=== PATIENT | female | born 1970 | race Caucasian/White ===

== ENCOUNTER → 2018-05-06 10:14 | Outpatient (CLI) | payer BC, SELFPAY | PROVIDERS: Family Provider Family Medicine; PCP Family Medicine; Visit Provider Family Medicine | DX: E03.9 Hypothyroidism, unspecified (principal); E88.81 Metabolic syndrome and other insulin resistance; I10 Essential (primary) hypertension | CPT/HCPCS: 36415 ==

== ENCOUNTER → 2018-06-13 12:27 | Outpatient (CLI) | payer BC, SELFPAY ==
--- NOTE | 2018-06-13 12:32 | BI_ITS ---
MAMMOGRAPHY - BILATERAL SCREENING REASON FOR EXAM: Female, 48 years old. Routine annual screening examination. PERTINENT HISTORY: Aunt with breast cancer. Remote right stereotactic breast biopsy. TECHNIQUE: Digital bilateral breast alina (3D mammographic acquisition) in the CC and MLO projections. 2-D mediolateral oblique (MLO) and craniocaudad (CC) views of both breasts were obtained. CAD: Full Field Digital Mammography with Computer Added Detection was performed. COMPARISON: Comparison is made with prior study dated June 16, 2017 and June 04, 2016. FINDINGS: Breast Composition: The breasts are heterogeneously dense, which may obscure small masses. There are no dominant masses or suspicious calcifications. Stable appearance of the scattered calcifications more prominent in the deep mid medial portion of the right breast. Stable appearance of the bilateral axillary lymph nodes. No other significant abnormalities are identified. There has been no significant change since the prior study. BI/SCREENING MAMM (CAD), BILAT IMPRESSION: Stable bilateral screening mammogram. Yearly follow-up mammogram recommended. (A) ASSESSMENT CATEGORY: BIRADS Category 2: Benign. A letter regarding these results will be sent to the patient by the facility within 30 days. Approximately 10% of breast cancers are not detected by mammography. A normal mammogram should not delay biopsy of a clinically suspicious abnormality. [id number] Electronically Signed: Dony Herrera MD at 8:20 EDT Tel [phone], Service support ,
== END ==
PROVIDERS: Family Provider Family Medicine; PCP Family Medicine
DX: Z12.31 Encounter for screening mammogram for malignant neoplasm of breast (principal)
CPT/HCPCS: 77063; 77067

== ENCOUNTER 2018-09-02 06:53 | Day surgery (SDC) | payer BC, SELFPAY ==
[2018-09-02] VITALS (7 sets, daily range): BP systolic 118–141; BP diastolic 76–105; PULSE 62–84; RESP 14–18; TEMP 36.2–36.8; O2SAT 97–100; BMI 33.7
[2018-09-02 07:24] LABS: Internal QC Validated? YES +Cl - CLEAR BKGD
[2018-09-02 07:25] LABS: Pregnancy, Urine Negative Negative
--- NOTE | 2018-09-02 08:25 | HP.PCM_ITS ---
History of Present Illness Date of Admission: 09/02/18 The patient is a 48 year old F who presents for screening colonoscopy. The patient has never had a colonoscopy in the past. She has no family history of colon cancer. She denies any abdominal pain, blood in the stool, inadvertent weight loss. Past Medical/Surgical History - Planned Operation Planned Operative Procedure/s: COLONOSCOPY Date of Operative Procedure: 09/02/17 Permit Signed: Yes S.O.S: No Is This Patient Having a Total Joint: No - Previous Hospitalizations/Surgeries HX Hospitalizations: No HX of Surgeries: TONSILS CHILD. 1987 ANKLE SURGERY/ PIN INSERTION/ REMOVAL 1988. 1997 BREAST LUMPECTOMY. GALLBLADDER. BUNIONECTOMY 2005. 2012 KNEE ARTHROSCOPY/MENISCUIS. 2004/TWINS. L WRIST GANGLION CYST Any Problems With Anesthesia: No You/Your Family Experience Fever (Hyperthermia) With Anes: No Cholinesterase deficiency: No - Cardiovascular Hx Chest Pain within Last 2 months: No Hx of Irregular Heartbeat and/or Afib: No Hx Heart Attack: No Hx Congestive Heart Failure: No Hx Rheumatic Fever: No Hx Hypertension: Yes - ON MED, CONTROLLED Hx Internal Defibrillator: No Hx Pacemaker: No Hx Cardiac Catheterization: No Hx Cardiac Surgery/Stents/Etc.: No Hx Stress Test: Yes - 2014 [facility], SEE NOTES HX Edema: No Hx Pain in Legs when Walking/Leg Cramps: No - Respiratory Chronic Cough: No HX of Shortness of Breath: No Hoarseness: No Hx Chronic Obstructive Pulmonary Disease (COPD): No Hx Asthma: Yes - UNDX'D PER PT. SHE FEELS SHE HAS Hx Emphysema: No Hx Sleep Apnea: No Hx Oxygen Use at Home: No Hx Respiratory Tract Infection/Cold (presently): No Do You Snore Loudly (louder than talking or can be heard): No Do You Often Feel Tired/ Fatigued/ Sleepy Dring Daytime?: No Has Anyone Observed You Stop Breathing During Sleep?: No Result (for STOP score): Negative Hx Smoking: No Smoking Status: Never smoker - Gastrointestinal Hx Gastroesophageal Reflux: No Hx Gastrointestinal Disorders: No Hx Gastrointestinal Bleed: No Hx Ulcer: No Hx Hiatal Hernia: No Difficulty Chewing/Swallowing: No Recent Onset of Swallowing Problems: No Special diet followed at home: No Hx Unplanned Weight Loss of 20#: No HX Unplanned Weight Gain of 20#: No - Neurological Hx Seizures: No HX Syncope/Blackout Spells/Unconsciousness: No Hx CVA/Stroke: No Hx Transient Ischemic Attacks (TIA): No Hx Multiple Sclerosis: No Hx Parkinson's Disease: No Hx Head/Neck Injury: Yes - BROKEN NECK 2009 C-2 HANGMANS BREAK Hx Headaches: No Hx Back Injury/Pain: No Recent Onset of Speech Difficulty: No Restless Legs: No Does patient have nerve stimulator: No - Blood Disorder Hx Leukemia: No Bleeding Tendencies: No Hx Deep Vein Thrombosis: No Hx High Cholesterol: Yes - OUT OF MED CURRENTLY, TAKES QOD Blood Transmitted Disease: No Hx Hepatitis: No Hx Cirrhosis: No Hx Anemia: No Hx Blood Disorders: No - Reproduction : No Is Patient Lactating: No Hx Hysterectomy: No Hx Tubal Ligation: No Are You Post Menopause: No Pt Instructed Not To Have Any Sex From Now Until Surgery: No - Genitourinary Hx Renal Disease: No - Musculoskeletal Hx Arthritis: Yes Hx Rheumatoid Arthritis: No Hx Gout: No Recent Onset of an Orthopedic Problem: No - Endocrine Hx Diabetes: No - METFORMIN FOR POLYCYSTIC OVARY Thyroid Disease: Yes - ON MED Hx Steroid Therapy: No - Psycho/Social Hx Substance Use: No Hx Alcohol Use: No Hx Anxiety: No Hx Depression: Yes Mental Illness: No Hx Dementia: No - Miscellaneous Hx Cancer: No Recent Exposure to Contagious Disease: No Active MRSA: No Hx of C-Diff: No Any Loose Teeth: No Allergies adhesive tape Allergy (Verified 09/02/18 07:10) Rash - Discharge Is Pt Admitted From a Longterm, or a [facility]: No Who Could Help: After D/C, Where Do you Plan to Go: Return Home - Physical Exam General: Alert, Oriented x3, Cooperative Lungs: Normal air movement Cardiovascular: Regular rate, Regular Rhythm Abdomen: Soft, Non Tender, Non-Distended Vital Signs Temp Pulse Resp BP Pulse Ox 98.2 F 84 14 141/86 H 98 09/02/18 07:13 09/02/18 07:13 09/02/18 07:13 09/02/18 07:13 09/02/18 07:13 Oxygen Delivery Method Room Air Weight: 196 lb 3.382 oz Body Mass Index (BMI) 33.7 Laboratory Tests Past 24 Hrs 09/02/18 07:06 Urine Test Negative Assessment/Plan 48-year-old female for screening colonoscopy 1. I explained endoscopy in detail to the patient. I explained the risks including but not limited to stroke or heart attack with anesthesia, perforation of the GI tract, bleeding, infection. I explained that any of these could necessitate further emergency surgery. The patient understands and all questions were answered sufficiently. The patient wishes to proceed with procedure. Sivakumar Richard MD Pager: [facility] [address] [place] [address] [address] [place] [address] Office: Surgery Risks - Colonoscopy Risks Include but are not Limited To: Risks include but are not limited to: Bleeding, perforation requiring further surgery, inability to complete colonoscopy requiring barium enema.
--- NOTE | 2018-09-02 08:29 | OP.ENDO_ITS ---
Patient Name: Radha Mayer Procedure Date: 09/02/2018 7:18 AM Date of : 1970 Age: 48 Procedure: Colonoscopy Indications: Screening for colorectal malignant neoplasm Providers: Sivakumar Richard MD Medicines: Monitored Anesthesia Care Patient Profile: This is a 48 year old female. Refer to note in patient chart for documentation of history and physical. Last Colonoscopy: none. The patient's first colonoscopy is today. Complications: No immediate complications. Procedure: Pre-Anesthesia Assessment: - Prior to the procedure, a History and Physical was performed, and patient medications and allergies were reviewed. The patient's tolerance of previous anesthesia was also reviewed. The risks and benefits of the procedure and the sedation options and risks were discussed with the patient. All questions were answered, and informed consent was obtained. Prior Anticoagulants: The patient has taken no previous anticoagulant or antiplatelet agents. After reviewing the risks and benefits, the patient was deemed in satisfactory condition to undergo the procedure. After I obtained informed consent, the scope was passed under direct vision. Throughout the procedure, the patient's blood pressure, pulse, and oxygen saturations were monitored continuously. The Colonoscope was introduced through the anus and advanced to the cecum, identified by appendiceal orifice and ileocecal valve. The colonoscopy was performed without difficulty. The patient tolerated the procedure well. The quality of the bowel preparation was good. Scope In: 8:03:56 AM Scope Withdrawal Time 0 hours 6 minutes 52 seconds Scope Out: 8:19:30 AM Total Procedure Duration Time 0 hours 15 minutes 34 seconds Findings: The entire examined colon appeared normal on direct and retroflexion views. Impression: - The entire examined colon is normal on direct and retroflexion views. - No specimens collected. Recommendation: - Discharge patient to home. - Resume previous diet. - Continue present medications. - Repeat colonoscopy in 10 years for screening purposes. Procedure Code(s): --- Professional --- 55460, PT, Colonoscopy, flexible; diagnostic, including collection of specimen(s) by brushing or washing, when performed (separate procedure) Diagnosis Code(s): --- Professional --- Z12.11, Encounter for screening for malignant neoplasm of colon CPT copyright 2017 [employer]. All rights reserved. The codes documented in this report are preliminary and upon assistant education director review may be revised to meet current compliance requirements. Sivakumar Richard MD 09/02/2018 8:29:19 AM This report has been signed electronically. Number of Addenda: 0 Note Initiated On: 09/02/2018 7:18 AM
== END 2018-09-02 08:54 | disposition home or self-care (01) ==
LOC: EN 06:54 → AC 06:55
PROVIDERS: Anesthesiology; Family Provider Family Medicine; PCP Family Medicine; Referring Provider Surgery; Visit Provider Surgery
PROC: 0DJD8ZZ Inspection of Lower Intestinal Tract, Via Natural or Artificial Opening Endoscopic (ICD-10-PCS; CPT 45378; principal; 2018-09-02 07:55)
DX: Z12.11 Encounter for screening for malignant neoplasm of colon (principal); I10 Essential (primary) hypertension; E78.00 Pure hypercholesterolemia, unspecified
CPT/HCPCS: 45378; 81025; J7120

== ENCOUNTER → 2018-10-11 09:49 | Outpatient (CLI) | payer BC, SELFPAY ==
[2018-09-02 07:13] VITALS: BMI 33.7
== END ==
PROVIDERS: Family Provider Family Medicine; PCP Family Medicine; Visit Provider Family Medicine
DX: E03.9 Hypothyroidism, unspecified (principal); E88.81 Metabolic syndrome and other insulin resistance; I10 Essential (primary) hypertension
CPT/HCPCS: 36415

== ENCOUNTER → 2019-06-15 09:04 | Outpatient (CLI) | payer BC, SELFPAY ==
[2018-09-02 07:13] VITALS: BMI 33.7
== END ==
PROVIDERS: Family Provider Family Medicine; PCP Family Medicine; Referring Provider Family Medicine; Visit Provider Family Medicine
DX: E03.9 Hypothyroidism, unspecified (principal)
CPT/HCPCS: 36415

== ENCOUNTER → 2019-06-19 14:28 | Outpatient (CLI) | payer BC, SELFPAY ==
[2018-09-02 07:13] VITALS: BMI 33.7
--- NOTE | 2019-06-19 14:32 | BI_ITS ---
MAMMOGRAPHY - BILATERAL SCREENING REASON FOR EXAM: Female, 49 years old. Routine annual screening examination. PERTINENT HISTORY: Aunt with breast cancer. TECHNIQUE: Digital bilateral breast kana (3D mammographic acquisition) in the CC and MLO projections. 2-D mediolateral oblique (MLO) and craniocaudad (CC) views of both breasts were obtained. CAD: Full Field Digital Mammography with Computer Added Detection was performed. COMPARISON: Comparison is made with prior study June 13, 2018 and June 16, 2017 FINDINGS: Breast Composition: The breasts are heterogeneously dense, which may obscure small masses. There are no dominant masses or suspicious calcifications. Stable benign-appearing bilateral axillary lymph nodes. No other significant abnormalities are identified. There has been no significant change since the prior study. BI/SCREEN MAMM (CAD) W/KANA BILAT IMPRESSION: Stable bilateral screening mammogram. Yearly follow-up mammogram recommended. (A) ASSESSMENT CATEGORY: BIRADS Category 2: Benign. A letter regarding these results will be sent to the patient by the facility within 30 days. Approximately 10% of breast cancers are not detected by mammography. A normal mammogram should not delay biopsy of a clinically suspicious abnormality. [id number] Electronically Signed: Dony Herrera, at 8:50 EDT , Service support ,
== END ==
PROVIDERS: Family Provider Family Medicine; PCP Family Medicine; Referring Provider Obstetrics & Gynecology Gynecology; Visit Provider Obstetrics & Gynecology Gynecology
DX: Z12.31 Encounter for screening mammogram for malignant neoplasm of breast (principal); Z80.3 Family history of malignant neoplasm of breast
CPT/HCPCS: 77063; 77067

== ENCOUNTER → 2020-05-23 09:30 | Outpatient (CLI) | payer BC, SELFPAY ==
[2018-09-02 07:13] VITALS: BMI 33.7
== END ==
PROVIDERS: PCP Family Medicine; Referring Provider Family Medicine; Visit Provider Family Medicine
DX: E03.9 Hypothyroidism, unspecified (principal)
CPT/HCPCS: 36415

== ENCOUNTER → 2020-06-13 10:27 | Outpatient (CLI) | payer BC, SELFPAY ==
[2018-09-02 07:13] VITALS: BMI 33.7
[2020-06-13 12:27] LABS: Anion Gap 8 (5-15); BUN 21 mg/dL (7-18); Chloride 104 mmol/L (98-107); Creatinine, Serum 0.96 mg/dL (0.55-1.02); EST Glomerular Filtration Rate 65 mL/min (>60); Est Glom Filt Rate - Afr Amer 79 mL/min (>60); Glucose 82 mg/dL (74-106); Potassium 4.2 mmol/L (3.5-5.1); Sodium Level 136 mmol/L (136-145)
== END ==
PROVIDERS: PCP Family Medicine; Referring Provider Family Medicine; Visit Provider Family Medicine
DX: E87.6 Hypokalemia (principal)
CPT/HCPCS: 36415; 80048

== ENCOUNTER → 2020-06-19 09:39 | Outpatient (CLI) | payer BC, SELFPAY ==
[2018-09-02 07:13] VITALS: BMI 33.7
--- NOTE | 2020-06-19 09:48 | STEWCON_ITS ---
Reason For Study: Fatigue, HTN Stress Results Protocol: Kenyon Protocol WITH DEFINITY Maximum Predicted HR: 168 bpm Target HR: 143 bpm % Maximum Predicted HR: 96 % DurationHeart Rate Stage (mm:ss) (bpm) BP Comment Baseline 85 122/90No Chest Pain; 3 ML Diluted Definity Kenyon Protocol Stage I 3:00 116 134/90No Chest Pain Kenyon Protocol Stage II 3:00 133 164/88No Chest Pain; Mild Dyspnea Kenyon Protocol Stage III 3:00 162 174/82No Chest Pain; Moderate Dyspnea Recovery 85 118/82No Chest Pain; No Dyspnea Stress Duration: 9:00 mm:ss Maximum Stress HR: 162 bpm METS: 10 Baseline Echocardiogram Findings The estimated ejection fraction is 60 %. Post stress EF is 75%. Stress Echo Wall motion Data Resting WM Intermediate WM Stress WM Resting Wall Motion Wall Motion Stress No regional wall motion No regional wall motion abnormalities noted. abnormalities noted. EKG Data The baseline ECG demonstrates normal sinus rhythm with at rate of _ beats per minute. No significant ST T changes. Symptoms with Stress The patient experinced no chest pain . Interpretation Summary The estimated ejection fraction is 60 %. Stress Echo is negative for stress induced CP or EKG or Echocardiographic changes of ischemia. Functional capacity is normal for age. Ordering Physician: Mat Geiger Referring Physician: Antony Camejo Performed By: Tapan Obando RCS
== END ==
PROVIDERS: PCP Family Medicine; Referring Provider Family Medicine; Visit Provider Family Medicine
DX: I10 Essential (primary) hypertension (principal)
CPT/HCPCS: 93017; 93350; Q9957; A4216; C8928

== ENCOUNTER → 2020-06-27 10:40 | Outpatient (CLI) | payer BC, SELFPAY ==
[2018-09-02 07:13] VITALS: BMI 33.7
--- NOTE | 2020-06-27 10:42 | BI_ITS ---
MAMMOGRAPHY - BILATERAL SCREENING REASON FOR EXAM: Female, 50 years old. Routine annual screening examination. PERTINENT HISTORY: Aunt with breast cancer. Remote right excisional breast biopsy and right stereotactic breast biopsy. TECHNIQUE: Digital bilateral breast kana (3D mammographic acquisition) in the CC and MLO projections. 2-D mediolateral oblique (MLO) and craniocaudad (CC) views of both breasts were obtained. CAD: Full Field Digital Mammography with Computer Added Detection was performed. COMPARISON: Comparison is made with prior study dated 06/19/2019 and 06/13/2018. FINDINGS: Breast Composition: The breasts are heterogeneously dense, which may obscure small masses. There are no dominant masses or suspicious calcifications. Stable benign appearing bilateral axillary lymph nodes. No other significant abnormalities are identified. There has been no significant change since the prior study. BI/SCREEN MAMM (CAD) W/KANA BILAT IMPRESSION: Stable bilateral screening mammogram. Yearly follow-up mammogram recommended. (A) ASSESSMENT CATEGORY: BIRADS Category 2: Benign. A letter regarding these results will be sent to the patient by the facility within 30 days. Approximately 10% of breast cancers are not detected by mammography. A normal mammogram should not delay biopsy of a clinically suspicious abnormality. [id number] Electronically Signed: Dony Herrera, at 11:30 EDT , Service support ,
== END ==
PROVIDERS: PCP Family Medicine; Referring Provider Obstetrics & Gynecology Gynecology; Visit Provider Obstetrics & Gynecology Gynecology
DX: Z12.31 Encounter for screening mammogram for malignant neoplasm of breast (principal); Z80.3 Family history of malignant neoplasm of breast
CPT/HCPCS: 77063; 77067

== ENCOUNTER → 2020-12-13 12:24 | Outpatient (CLI) | payer BC, SELFPAY ==
[2018-09-02 07:13] VITALS: BMI 33.7
--- NOTE | 2020-12-13 12:28 | RAD_ITS ---
STUDY: X-RAY - RIGHT HAND, ATTENTION FIFTH FINGER REASON FOR EXAM: Fifth finger pain after injury of the fifth finger 2 weeks ago. TECHNIQUE: 3 view(s) of the finger were obtained. COMPARISON: None. FINDINGS: Normal metacarpal head. Normal metacarpophalangeal joint. Normal proximal phalanx. Normal middle phalanx. Normal distal phalanx. Normal proximal interphalangeal joint. Normal distal interphalangeal joint. There is soft tissue swelling at the level the proximal interphalangeal joint. RAD/Finger(s) Min 2 Views IMPRESSION: Soft tissue swelling. No demonstrated fracture. Electronically Signed: Shahid Moore MD at 15:01 EDT Tel , Service support ,
== END ==
PROVIDERS: PCP Family Medicine; Referring Provider Family Medicine; Visit Provider Family Medicine
DX: S69.90XA Unspecified injury of unspecified wrist, hand and finger(s), initial encounter (principal)
CPT/HCPCS: 73140

== ENCOUNTER → 2021-05-12 08:06 | Outpatient (CLI) | payer BC, SELFPAY ==
[2021-05-12 09:26] LABS: Hematocrit 37.7 % (37-47); Hemoglobin 12.1 g/dL (12.0-15.0); Mean Corp Hgb Conc 32.1 g/dL (32-36); Mean Corpuscular Hgb 28.4 pg (27.0-32.0); Mean Corpuscular Volume 88.5 fL (81-99); Mean Platelet Vol. 10.8 fl (6.2-12.0); Platelet Count 268 K/mm3 (150-450); RBC Distribution Width CV 14.1 % (11.6-14.6); RBC Distribution Width SD 45.5 fl (35.1-43.9); Red Blood Count 4.26 M/mm3 (4.2-5.4); White Blood Count 10.3 K/mm3 (4.4-11.0)
[2021-05-12 09:46] LABS: Microalbumin,Random Urine 7.2 mg/L (NO RANGE EST.); Microalbumin:Creatinine Ratio 8.5 mg/g CRE (<30 mg/g CRE)
[2021-05-12 10:15] LABS: ALB/GLOB Ratio 1.1 RATIO (0.9-2.4); AST(SGOT) 18 U/L (15-37); Alanine Aminotransfer ALT/SGPT 33 U/L (13-56); Albumin, Serum 3.7 g/dL (3.2-5.0); Alkaline Phosphatase 46 U/L (45-117); Anion Gap 8 (5-15); BUN 15 mg/dL (7-18); BUN/Creat Ratio 18.3 RATIO (10-20); Calcium,Total 8.9 mg/dL (8.5-10.1); Chloride 103 mmol/L (98-107); Cholesterol 139 mg/dL (200); Creatinine, Serum 0.82 mg/dL (0.55-1.02); EST Glomerular Filtration Rate 78 mL/min (>60); Est Glom Filt Rate - Afr Amer 94 mL/min (>60); Globulin 3.5 g/dL (2.2-4.2); Glucose 92 mg/dL (74-106); High Density Lipoprotein 50 mg/dL; Protein, Total 7.2 g/dL (6.4-8.2); Sodium Level 136 mmol/L (136-145); T4 Free Direct 1.27 ng/dL (0.76-1.46); Thyroid Stim Hormone (TSH) 1.83 uIU/mL (0.358-3.74); Triglycerides 72 mg/dL; Very Low Density Lipoprotein 14 mg/dL (5-40)
== END ==
PROVIDERS: PCP Family Medicine; Referring Provider Family Medicine; Visit Provider Family Medicine
DX: E03.9 Hypothyroidism, unspecified (principal); E88.81 Metabolic syndrome and other insulin resistance; I10 Essential (primary) hypertension
CPT/HCPCS: 36415; 80053; 80061; 82043; 82570; 84439; 84443; 85027

== ENCOUNTER → 2021-06-25 13:08 | Outpatient (CLI) | payer BC, SELFPAY ==
--- NOTE | 2021-06-25 13:12 | BI_ITS ---
MAMMOGRAPHY - BILATERAL SCREENING REASON FOR EXAM: Female, 51 years old. Routine annual screening examination. PERTINENT HISTORY: Aunt with breast cancer. Remote right stereotactic breast biopsy and right excisional breast biopsy. TECHNIQUE: Digital bilateral breast kana (3D mammographic acquisition) in the CC and MLO projections. 2-D mediolateral oblique (MLO) and craniocaudad (CC) views of both breasts were obtained. CAD: Full Field Digital Mammography with Computer Added Detection was performed. COMPARISON: Comparison is made with prior study 06/27/2020 and 06/19/2019. FINDINGS: Breast Composition: The breasts are heterogeneously dense, which may obscure small masses. There are no dominant masses or suspicious calcifications. No other significant abnormalities are identified. There has been no significant change since the prior study. BI/SCRN MAMM (CAD)W/KANA BILAT IMPRESSION: Stable bilateral screening mammogram. Yearly follow-up mammogram recommended. (A) ASSESSMENT CATEGORY: BIRADS Category 1: Negative. A letter regarding these results will be sent to the patient by the facility within 30 days. Approximately 10% of breast cancers are not detected by mammography. A normal mammogram should not delay biopsy of a clinically suspicious abnormality. [id number] Electronically Signed: Dony Herrera MD at 15:19 EDT , Service support ,
== END ==
PROVIDERS: PCP Family Medicine; Referring Provider Obstetrics & Gynecology Gynecology; Visit Provider Obstetrics & Gynecology Gynecology
DX: Z12.31 Encounter for screening mammogram for malignant neoplasm of breast (principal); Z80.3 Family history of malignant neoplasm of breast
CPT/HCPCS: 77063; 77067

== ENCOUNTER → 2022-05-15 | Outpatient (CLI) | payer BC, SELFPAY | END | disposition home or self-care (01) | LOC: MFPLAB 10:17 | PROVIDERS: PCP Family Medicine; Referring Provider Family Medicine; Visit Provider Nurse Practitioner Family | DX: E03.9 Hypothyroidism, unspecified (principal); I10 Essential (primary) hypertension; E78.5 Hyperlipidemia, unspecified; Z13.1 Encounter for screening for diabetes mellitus | CPT/HCPCS: 36415 ==

== ENCOUNTER → 2022-06-26 | Outpatient (CLI) | payer BC, SELFPAY ==
--- NOTE | 2022-06-26 07:22 | BI_ITS ---
MAMMOGRAPHY - BILATERAL SCREENING REASON FOR EXAM: Female, 52 years old. Routine annual screening examination. PERTINENT HISTORY: Aunt with breast cancer. Remote right stereotactic and right excisional breast biopsies. TECHNIQUE: Digital bilateral breast alina (3D mammographic acquisition) in the CC and MLO projections. 2-D mediolateral oblique (MLO) and craniocaudad (CC) views of both breasts were obtained. CAD: Full Field Digital Mammography with Computer Added Detection was performed. COMPARISON: Comparison is made with prior examination 06/25/2021 and 06/27/2020. FINDINGS: Breast Composition: The breasts are heterogeneously dense, which may obscure small masses. There are no dominant masses or suspicious calcifications. No other significant abnormalities are identified. There has been no significant change since the prior study. BI/SCREENING MAMM (CAD), BILAT IMPRESSION: Stable bilateral screening mammogram. Yearly follow-up mammogram recommended. (A) ASSESSMENT CATEGORY: BIRADS Category 1: Negative. A letter regarding these results will be sent to the patient by the facility within 30 days. Approximately 10% of breast cancers are not detected by mammography. A normal mammogram should not delay biopsy of a clinically suspicious abnormality. [id number] Electronically Signed: Dony Herrera MD at 8:35 EDT ,
== END | disposition home or self-care (01) ==
LOC: OPBI 07:20
PROVIDERS: PCP Family Medicine; Referring Provider Family Medicine; Visit Provider Family Medicine
DX: Z12.31 Encounter for screening mammogram for malignant neoplasm of breast (principal); Z92.89 Personal history of other medical treatment; Z80.3 Family history of malignant neoplasm of breast
CPT/HCPCS: 77067

== ENCOUNTER → 2022-07-28 | Outpatient (CLI) | payer BC, SELFPAY ==
--- NOTE | 2022-07-28 15:05 | BD_ITS ---
STUDY: DUAL ENERGY X-RAY ABSORPTIOMETRY / DXA REASON FOR EXAM: Female, 52 years old. [id number] TECHNIQUE: Bone Mineral Density (BMD) measurements of lumbar spine and bilateral hips were obtained. COMPARISON: None. FINDINGS: Lumbar Spine (L1-L4): g/cm2 (1.073) / T-score (0.2) / Z-score (1.3) Findings are suggestive of normal bone density with a low fracture risk. Left Femur Total: g/cm2 (1.036) / T-score (0.8) / Z-score (1.4) Left Femoral Neck: g/cm2 (0.801) / T-score (-0.4) / Z-score (0.6) Right Femur Total: g/cm2 (1.034) / T-score (0.8) / Z-score (1.4) Right Femoral Neck: g/cm2 (0.804) / T-score (-0.4) / Z-score (0.7) BD/Dexa Bone Density Study IMPRESSION: The patient is considered normal as outlined below according to World [employer] Organization (WHO) criteria with a low fracture risk. Reference Information: The T-score is the number of standard deviations above or below the standard which is normal for young adults at their peak bone mineral density. The World Health Organization (WHO) interprets the T-scores as follows: Above -1 Normal bone density Between -1 and -2.5 Osteopenia Equal to / or below -2.5 Osteoporosis As a practical clinical guideline, osteopenia may be graded as follows: Mild -1 through -1.5 Moderate -1.6 through -2.0 Severe -2.1 through -2.4 The Z-score is the number of standard deviations above or below age-matched controls. A Z-score of less than -1.5 would be considered abnormal. References: 1. NIH Osteoporosis and Related Bone Diseases www osteo.org 2. International Society for Clinical Densitometry www iscd.org 3. National Osteoporosis Foundation www nof.org Electronically Signed: Dony Herrera MD at 10:23 EST ,
== END | disposition home or self-care (01) ==
LOC: OPBD 15:00
PROVIDERS: PCP Family Medicine; Visit Provider Obstetrics & Gynecology Gynecology
DX: Z13.820 Encounter for screening for osteoporosis (principal)
CPT/HCPCS: 77080

== ENCOUNTER → 2023-06-29 | Outpatient (CLI) | payer BC, SELFPAY ==
--- NOTE | 2023-06-29 14:45 | BI_ITS ---
MAMMOGRAPHY - BILATERAL SCREENING REASON FOR EXAM: Female, 53 years old. Routine annual screening examination. PERTINENT HISTORY: Aunt with breast cancer. Remote right stereotactic and right excisional breast biopsies. TECHNIQUE: Digital bilateral breast kana (3D mammographic acquisition) in the CC and MLO projections. 2-D mediolateral oblique (MLO) and craniocaudad (CC) views of both breasts were obtained. CAD: Full Field Digital Mammography with Computer Added Detection was performed. COMPARISON: Comparison is made with prior study dated June 26, 2022 and June 25, 2021. FINDINGS: Breast Composition: The breasts are heterogeneously dense, which may obscure small masses. There are no dominant masses or suspicious calcifications. Stable small benign-appearing bilateral axillary left nodes. No other significant abnormalities are identified. There has been no significant change since the prior study. BI/SCRN MAMM (CAD)W/KANA BILAT IMPRESSION: Stable bilateral screening mammogram. Yearly follow-up mammogram recommended. (A) ASSESSMENT CATEGORY: BIRADS Category 2: Benign. A letter regarding these results will be sent to the patient by the facility within 30 days. Approximately 10% of breast cancers are not detected by mammography. A normal mammogram should not delay biopsy of a clinically suspicious abnormality. [id number] Electronically Signed: Dony Herrera MD at 15:19 EDT ,
== END | disposition home or self-care (01) ==
LOC: OPBI 14:44
PROVIDERS: PCP Family Medicine; Referring Provider Obstetrics & Gynecology Gynecology; Visit Provider Obstetrics & Gynecology Gynecology
DX: Z12.31 Encounter for screening mammogram for malignant neoplasm of breast (principal); Z80.3 Family history of malignant neoplasm of breast
CPT/HCPCS: 77063; 77067

== ENCOUNTER → 2024-03-20 | Outpatient (CLI) | payer BC, SELFPAY ==
[2024-03-20 17:46] LABS: Absolute Lymphocyte Count 3.07 X10^3/uL (0.83-4.51); Absolute Neutrophil Count 4.3 X10^3/uL (2.0-7.7); Basophil# 0.08 X10^3/uL; Basophil% 0.9 % (0-1); Eosinophil# 0.64 X10^3/uL; Eosinophils% 7.2 % (0-5); Hematocrit 41.9 % (37-47); Hemoglobin 13.7 g/dL (12.0-15.0); Lymphocyte # 3.07 X10^3/ul (0.83-4.51); Lymphocyte % 34.4 % (19-41); Mean Corp Hgb Conc 32.7 g/dL (32-36); Mean Corpuscular Hgb 29.3 pg (27.0-32.0); Mean Corpuscular Volume 89.7 fL (81-99); Mean Platelet Vol. 11.1 fl (6.2-12.0); Monocyte# 0.83 X10^3/uL; Monocyte% 9.3 % (0-10); NRBC Flagged by Analyzer 0 % (0-5); Neutrophil # 4.28 X10^3/uL (2.7-7.7); Neutrophil % 47.9 % (47-70); Platelet Count 260 K/mm3 (150-450); RBC Distribution Width CV 13.1 % (11.6-14.6); RBC Distribution Width SD 42.9 fl (35.1-43.9); Red Blood Count 4.67 M/mm3 (4.2-5.4); White Blood Count 8.9 K/mm3 (4.4-11.0)
[2024-03-20 18:05] LABS: ALB/GLOB Ratio 1.2 RATIO (0.9-2.4); AST(SGOT) 42 U/L (15-37); Alanine Aminotransfer ALT/SGPT 50 U/L (13-56); Albumin, Serum 4.3 g/dL (3.2-5.0); Alkaline Phosphatase 41 U/L (45-117); Anion Gap 8 (5-15); BUN 19 mg/dL (7-18); BUN/Creat Ratio 20.9 RATIO (10-20); Calcium,Total 9.5 mg/dL (8.5-10.1); Chloride 101 mmol/L (98-107); Cholesterol 144 mg/dL (200); Creatinine, Serum 0.91 mg/dL (0.55-1.02); EST Glomerular Filtration Rate 68 mL/min (>60); Est Glom Filt Rate - Afr Amer 82 mL/min (>60); Globulin 3.6 g/dL (2.2-4.2); Glucose 88 mg/dL (74-106); High Density Lipoprotein 52 mg/dL; Potassium 4.4 mmol/L (3.5-5.1); Protein, Total 7.9 g/dL (6.4-8.2); Sodium Level 135 mmol/L (136-145); Thyroid Stim Hormone (TSH) 1.53 uIU/mL (0.358-3.74)
[2024-03-20 18:16] LABS: Microalbumin:Creatinine Ratio 13.9 mg/g CRE (<30 mg/g CRE)
== END | disposition home or self-care (01) ==
LOC: MFPLAB 15:04
PROVIDERS: PCP Family Medicine; Visit Provider Family Medicine
DX: K76.0 Fatty (change of) liver, not elsewhere classified (principal); I10 Essential (primary) hypertension; E03.9 Hypothyroidism, unspecified; E78.5 Hyperlipidemia, unspecified
CPT/HCPCS: 36415; 80053; 82043; 82465; 82570; 83718; 84443; 85025

== ENCOUNTER 2024-03-23 04:02 | Emergency (ER) | payer BC, SELFPAY ==
[2024-03-23 04:02] VITALS: BP 144/97; PULSE 77; RESP 16; TEMP 36.1; O2SAT 97; BMI 34.7
--- NOTE | 2024-03-23 04:13 | CT_ITS ---
EXAM: CT ABDOMEN AND PELVIS WITHOUT INTRAVENOUS CONTRAST CLINICAL INDICATION: right flank pain TECHNIQUE: Helically acquired images were obtained of the abdomen and pelvis without intravenous contrast. This CT exam was performed using one or more of the following dose reduction techniques: automated exposure control, adjustment of the mA and/or kV according to patient size, and/or use of iterative reconstruction technique. RADIATION DOSE: CTDIvol = 15.72 mGy, DLP = 856.19 mGy-cm COMPARISON: No relevant prior studies available. FINDINGS: LOWER THORAX: Unremarkable. Lung bases are clear. No cardiomegaly. No significant pericardial effusion. ABDOMEN: LIVER: Hepatomegaly with fatty infiltration. GALLBLADDER AND BILE DUCTS: Cholecystectomy. No intra- or extrahepatic biliary ductal dilation. PANCREAS: Unremarkable. No focal cystic mass. SPLEEN: Unremarkable. Normal size without focal cystic or solid mass. ADRENALS: Unremarkable. No nodules. KIDNEYS AND URETERS: No ureteral stone or renal obstruction. Normal renal size and position. 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 No stomach or bowel distention. PELVIS: APPENDIX: The appendix is normal. BLADDER: Unremarkable. REPRODUCTIVE: Unremarkable as visualized. No mass. ABDOMEN and PELVIS: INTRAPERITONEAL SPACE: Unremarkable. No ascites or other fluid collection. No free air. BONES/JOINTS: Degenerative changes of the spine. No suspicious lytic or blastic abnormality. SOFT TISSUES: Unremarkable. No discrete abdominal or pelvic wall hernia. VASCULATURE: Unremarkable. Abdominal aorta is non-dilated. LYMPH NODES: Unremarkable. No enlarged lymph nodes. CT/Abdomen/Pelvis without Cont IMPRESSION: 1. No acute abnormalities identified in the abdomen/pelvis. 2. No ureteral stone or renal obstruction. Electronically Signed: Luis Felipe Zapata MD at 4:54 EDT ,
--- NOTE | 2024-03-23 04:14 | EX.ED.DYSGE1 ---
HPI History of Present Illness Chief Complaint: Flank Pain Informant: patient Onset/Context/Timing Onset: Today Narrative Narrative: Patient presents secondary to right flank pain that started about an hour ago when she rolled over in bed. She felt well when she went to bed last night. She denies urinary symptoms, nausea, or vomiting. No history of kidney stones. She has had a prior cholecystectomy. [facility] Medical History HTN (hypertension) PCOS (polycystic ovarian syndrome) Hypothyroid Home Medications ?Medication ?Instructions ?Recorded ?Last Taken ?Type levothyroxine 88 mcg tablet 88 mcg PO QHS 07/20/16 Unknown History metformin 500 mg 24 hr 2,000 mg PO QHS 07/20/16 Unknown History tablet,extended release (gastric retention) bupropion HCl 150 mg 24 hr tablet, 150 mg PO DAILY 08/29/18 Unknown History extended release (Wellbutrin XL) cholecalciferol (vitamin D3) 25 1,000 unit PO DAILY 08/29/18 Unknown History mcg (1,000 unit) tablet (Vitamin D3) losartan 25 mg tablet 25 mg PO DAILY 08/29/18 Unknown History magnesium 250 mg tablet 500 mg PO DAILY 08/29/18 Unknown History hydrocodone-acetaminophen 5-325mg 1 tab PO Q6H PRN PRN Pain 3 days 03/23/24 Unknown Rx 5mg-325mg #10 TABLETS naproxen 500 mg tablet (Naprosyn) 500 mg PO BID PRN pain #20 tabs 03/23/24 Unknown Rx ondansetron 4 mg disintegrating 4 mg PO Q8H PRN PRN Nausea #10 tabs 03/23/24 Unknown Rx tablet Allergy/AdvReac Type Severity Reaction Status Date / Time adhesive tape Allergy Rash Verified 03/23/24 04:08 Surgical History H/O lumpectomy History of delivery History of orthopedic surgery Hx of tonsillectomy Hx of cholecystectomy Social History Smoking Status: Never smoker ROS ROS ED Constitutional Constitutional ED: Denies chills or fever(s) Eyes Eyes: Denies discharge from eye(s) ENT ENT ED: Denies discharge from eye(s), rhinorrhea or sore throat Cardiovascular Cardiovascular: Denies chest pain or palpitations Respiratory/Chest Respiratory/Chest: Denies cough or dyspnea Gastrointestinal Gastrointestinal: Reports abdominal pain; Denies diarrhea, nausea or vomiting Genitourinary Genitourinary ED: Denies dysuria, hematuria or urinary frequency Musculoskeletal Musculoskeletal: Reports back pain; Denies extremity pain Integumentary Denies Abrasions or rash Neurologic Neurologic: Denies headache(s) or weakness Allergic/Immunologic Allergic/Immunologic ED: Denies lip swelling or urticaria EXAM Physical Exam Const Vital Signs: 03/23/24 04:02 Temperature 97 F L Temperature Source Temporal Pulse Rate 77 Respiratory Rate 16 Blood Pressure 144/97 H Blood Pressure Mean 112 Pulse Ox 97 Positive well nourished and well developed General Appearance ED: well developed HEENT Reports moist mucous membranes Eyes EOMs intact bilaterally Neck no lymphadenopathy Chest Wall inspection of chest normal and palpation of chest normal Resp normal respiratory effort and clear to auscultation bilaterally Cardio regular rate and regular rhythm GI non-tender Palpation: soft Back/Spine General Back: CVA tenderness right Extremity normal to inspection Neuro oriented x3 and no sensory deficits noted Motor Exam: strength 5/5 throughout Psych mental status grossly normal Skin no rashes or lesions noted MDM MDM MDM Narrative Medical decision making narrative: IV line established. Patient given Toradol and Zofran along with IV fluids. Labwork obtained to evaluate for leukocytosis, anemia, and electrolyte derangement. Urinalysis obtained to evaluate for infection/hematuria. CT flank obtained to evaluate for appendicitis, kidney stone, colitis. History & Record Review Discussion w/independent historian: Patient Lab Data Attestation: I reviewed the patient's lab results. Labs: Laboratory Results - last 24 hr 03/23/24 03/23/24 04:15 04:28 WBC 8.4 RBC 4.65 Hgb 13.6 Hct 41.0 MCV 88.2 MCH 29.2 MCHC 33.2 RDW Std Deviation 41.7 RDW Coeff of Malini 12.9 Plt Count 242 MPV 10.7 Immature Gran % (Auto) 0.400 Neut % (Auto) 49.9 Lymph % (Auto) 31.8 [place] % (Auto) 10.1 H Eos % (Auto) 7.1 H Baso % (Auto) 0.7 Absolute Neuts (auto) 4.2 Absolute Lymphs (auto) 2.67 Nucleated RBC % 0 Sodium 137 Potassium 3.7 Chloride 105 Carbon Dioxide 25.0 Anion Gap 7 BUN 17 Creatinine 0.99 Estim Creat Clear Calc 69.62 Est GFR (MDRD) Af Amer 75 Est GFR (MDRD) Non-Af 62 BUN/Creatinine Ratio 17.2 Glucose 124 H Calcium 9.3 Total Bilirubin 0.50 Direct Bilirubin 0.18 AST 31 ALT 47 Alkaline Phosphatase 47 Total Protein 7.3 Albumin 4.1 Globulin 3.2 Lipase 51 Urine Color Yellow Urine Clarity Clear Urine pH 6.0 Ur Specific [place] 1.015 Urine Protein Negative Urine Glucose (UA) Normal Urine Ketones Negative Urine Occult Blood Negative Urine Nitrite Negative Urine Bilirubin Negative Urine Urobilinogen Normal Ur Leukocyte Esterase 25 H Urine RBC 0 SEEN Urine WBC 0 SEEN Ur Squamous Epith Cells 5-10 SEEN Urine Bacteria 0 SEEN Urine Mucus 0 SEEN Radiography Diagnostic Testing: Clinical Impression(s) from Imaging Studies Abdomen/Pelvis CT 03/23/24 04:13 IMPRESSION: 1. No acute abnormalities identified in the abdomen/pelvis. 2. No ureteral stone or renal obstruction. Electronically Signed: Luis Felipe Zapata MD at 4:54 EDT , Treatment and Re-Evaluation :: CBC was normal white count 8.4 with a hemoglobin of 13.6. Differential unremarkable. Chemistry studies unremarkable with normal renal function. Glucose is 124. LFTs and lipase are normal. Urine has reveals epithelial cells but no evidence of infection or hematuria. CT flank reveals no acute abnormalities identified. On repeat evaluation patient still does have some pain, however did drive herself to the emergency room and does not want narcotics if we can avoid it. I will write her prescription for [place] along with some Zofran for nausea. Test results are discussed with her. She has pain consistent with a kidney stone, but nothing is seen. She may be having some ureteral spasm or even have a noncalcified stone. She was given strict return instructions and is comfortable with the plan. Discharge Plan Triage Chief Complaint: Flank Pain ED Provider: Pam Hernández Dx/Rx/DC Orders Clinical Impression: Flank pain Instructions: ED Flank Pain, Uncertain Cause Prescriptions: New hydrocodone-acetaminophen 5-325 mg tablet 1 tab PO Q6H PRN PRN (Reason: Pain) 3 Days Qty: 10 0RF naproxen [Naprosyn] 500 mg tablet 500 mg PO BID PRN (Reason: pain) Qty: 20 0RF ondansetron 4 mg tablet,disintegrating 4 mg PO Q8H PRN PRN (Reason: Nausea) Qty: 10 0RF No Action levothyroxine 88 MCG tablet 88 mcg PO QHS metformin 500 MG tablet,ER [email or web address].[email or web address] 24 hr 2,000 mg PO QHS Patient Comments: POLYCYSTIC OVARIAN DISEASE losartan 25 MG tablet 25 mg PO DAILY magnesium 250 MG tablet 500 mg PO DAILY bupropion HCl [Wellbutrin XL] 150 MG tablet extended release 24 hr 150 mg PO DAILY cholecalciferol (vitamin D3) [Vitamin D3] 1,000 UNIT tablet 1,000 unit PO DAILY Primary Care Provider: Mat Geiger Referrals: Mat Geiger MD [Primary Care Provider] - 1 Week Print Language: Spanish Disposition Disposition: Home, Self Care
[2024-03-23 04:22] LABS: Absolute Lymphocyte Count 2.67 X10^3/uL (0.83-4.51); Absolute Neutrophil Count 4.2 X10^3/uL (2.0-7.7); Basophil# 0.06 X10^3/uL; Basophil% 0.7 % (0-1); Eosinophils% 7.1 % (0-5); Hemoglobin 13.6 g/dL (12.0-15.0); Lymphocyte # 2.67 X10^3/ul (0.83-4.51); Lymphocyte % 31.8 % (19-41); Mean Corp Hgb Conc 33.2 g/dL (32-36); Mean Corpuscular Hgb 29.2 pg (27.0-32.0); Mean Corpuscular Volume 88.2 fL (81-99); Mean Platelet Vol. 10.7 fl (6.2-12.0); Monocyte# 0.85 X10^3/uL; Monocyte% 10.1 % (0-10); NRBC Flagged by Analyzer 0 % (0-5); Neutrophil # 4.19 X10^3/uL (2.7-7.7); Neutrophil % 49.9 % (47-70); Platelet Count 242 K/mm3 (150-450); RBC Distribution Width CV 12.9 % (11.6-14.6); RBC Distribution Width SD 41.7 fl (35.1-43.9); Red Blood Count 4.65 M/mm3 (4.2-5.4); White Blood Count 8.4 K/mm3 (4.4-11.0)
[2024-03-23] MEDS: Ketorolac 15 MG/ML Vial IV (04:24)
[2024-03-23] MEDS: Ondansetron 4 MG/2 ML Vial IV (04:24)
[2024-03-23 04:34] LABS: Bacteria 0 SEEN /hpf (None Seen); Mucous, Urine 0 SEEN /hpf (<or=2+); Red Blood Cells-Urine 0 SEEN /hpf (0-5); White Blood Cells 0 SEEN /hpf (0-5)
[2024-03-23 04:35] LABS: Color, Urine Yellow (Yellow); Glucose, Dipstick Normal (Normal); Ketone-Dipstick Negative (Negative); Leukocyte Esterase-Dipstick 25 /ul (Negative); Nitrite-Dipstick Negative (Negative); Occult Blood-Urine Negative /ul (Negative); Protein-Dipstick Negative (Negative); Specific Gravity, Urine 1.015 (1.002-1.030); Urine Bilirubin Dipstick Negative (Negative); Urine Clarity Clear (Clear); Urine Urobilinogen Normal (Normal)
[2024-03-23 04:40] LABS: AST(SGOT) 31 U/L (15-37); Alanine Aminotransfer ALT/SGPT 47 U/L (13-56); Albumin, Serum 4.1 g/dL (3.2-5.0); Alkaline Phosphatase 47 U/L (45-117); Anion Gap 7 (5-15); BUN 17 mg/dL (7-18); BUN/Creat Ratio 17.2 RATIO (10-20); Bilirubin, Direct 0.18 mg/dL (0.00-0.30); Calcium,Total 9.3 mg/dL (8.5-10.1); Chloride 105 mmol/L (98-107); Creatinine, Serum 0.99 mg/dL (0.55-1.02); EST Glomerular Filtration Rate 62 mL/min (>60); Est Glom Filt Rate - Afr Amer 75 mL/min (>60); Estimated Creatinine Clearance 69.62 ml/min; Globulin 3.2 g/dL (2.2-4.2); Glucose 124 mg/dL (74-106); Lipase 51 U/L (13-75); Potassium 3.7 mmol/L (3.5-5.1); Protein, Total 7.3 g/dL (6.4-8.2); Sodium Level 137 mmol/L (136-145)
[2024-03-23] MEDS: 0.9% Normal Saline (1000mL) 1,000 ML 150 ML IV (05:07)
[2024-03-23 05:32] LABS: Squamous Epithelial Cells - UA 5-10 SEEN /hpf (5-10)
[2024-03-23 06:32] VITALS: BP 117/68; PULSE 87; RESP 16; TEMP 36.6; O2SAT 99
== END 2024-03-23 06:33 | disposition home or self-care (01) ==
PROVIDERS: Emergency Provider Emergency Medicine; PCP Family Medicine; Visit Provider Emergency Medicine
DX: R10.9 Unspecified abdominal pain (principal); I10 Essential (primary) hypertension; E03.9 Hypothyroidism, unspecified; E28.2 Polycystic ovarian syndrome; Z90.49 Acquired absence of other specified parts of digestive tract
CPT/HCPCS: 74176; 80048; 80076; 81001; 83690; 85025; 96361; 96374; 96375; 99283; J7040; A4216; J2405

== ENCOUNTER → 2024-08-03 | Outpatient (CLI) | payer BC, SELFPAY ==
--- NOTE | 2024-08-03 15:37 | BI_ITS ---
MAMMOGRAPHY - BILATERAL SCREENING REASON FOR EXAM: Female, 54 years old. Routine annual screening examination. PERTINENT HISTORY: Aunt with breast cancer. Prior right stereotactic breast biopsy and right excisional breast biopsy. TECHNIQUE: Digital bilateral breast kana (3D mammographic acquisition) in the CC and MLO projections. 2-D mediolateral oblique (MLO) and craniocaudad (CC) views of both breasts were obtained. CAD: Full Field Digital Mammography with Computer Added Detection was performed. COMPARISON: Comparison is made with prior study dated June 29, 2023 and June 26, 2022. FINDINGS: Breast Composition: The breasts are heterogeneously dense, which may obscure small masses. There are no dominant masses or suspicious calcifications. No other significant abnormalities are identified. There has been no significant change since the prior study. BI/SCRN MAMM (CAD)W/KANA BILAT IMPRESSION: Stable bilateral screening mammogram. Yearly follow-up mammogram recommended. (A) ASSESSMENT CATEGORY: BIRADS Category 1: Negative. A letter regarding these results will be sent to the patient by the facility within 30 days. Approximately 10% of breast cancers are not detected by mammography. A normal mammogram should not delay biopsy of a clinically suspicious abnormality. [id number] Electronically Signed: Dony Herrera MD at 8:39 EST ,
--- NOTE | 2024-08-03 15:38 | BD_ITS ---
STUDY: DUAL ENERGY X-RAY ABSORPTIOMETRY / DXA REASON FOR EXAM: Female, 54 years old. [id number] TECHNIQUE: Bone Mineral Density (BMD) measurements of lumbar spine and bilateral hips were obtained. COMPARISON: Comparison is made with prior study dated July 28, 2022. FINDINGS: Lumbar Spine (L1-L4): g/cm2 (1.042) / T-score (-0.1) / Z-score (1.1) Findings are suggestive of normal bone density with a low fracture risk. Left Femur Total: g/cm2 (1.028) / T-score (0.7) / Z-score (1.5) Left Femoral Neck: g/cm2 (0.751) / T-score (-0.9) / Z-score (0.2) Right Femur Total: g/cm2 (1.014) / T-score (0.6) / Z-score (1.3) Right Femoral Neck: g/cm2 (0.803) / T-score (-0.4) / Z-score (0.7) The T-Scores on the most recent prior examination were: Lumbar Spine (L1-L4): There has been worsening of bone density since the previous examination. Left Femur Total: which represents a worsening of 0.8%. Right Femur Total: which represents a worsening of 1.9. BD/Dexa Bone Density Study IMPRESSION: The patient is considered normal as outlined below according to World [employer] Organization (WHO) criteria with a low fracture risk. There has been worsening of bone density since the previous examination. Reference Information: The T-score is the number of standard deviations above or below the standard which is normal for young adults at their peak bone mineral density. The World Health Organization (WHO) interprets the T-scores as follows: Above -1 Normal bone density Between -1 and -2.5 Osteopenia Equal to / or below -2.5 Osteoporosis As a practical clinical guideline, osteopenia may be graded as follows: Mild -1 through -1.5 Moderate -1.6 through -2.0 Severe -2.1 through -2.4 The Z-score is the number of standard deviations above or below age-matched controls. A Z-score of less than -1.5 would be considered abnormal. References: 1. NIH Osteoporosis and Related Bone Diseases www osteo.org 2. International Society for Clinical Densitometry www iscd.org 3. National Osteoporosis Foundation www nof.org Electronically Signed: Dony Herrera MD at 9:16 EST ,
== END | disposition home or self-care (01) ==
PROVIDERS: PCP Family Medicine; Referring Provider Obstetrics & Gynecology Gynecology; Visit Provider Obstetrics & Gynecology Gynecology
DX: Z12.31 Encounter for screening mammogram for malignant neoplasm of breast (principal); Z80.3 Family history of malignant neoplasm of breast; M81.0 Age-related osteoporosis without current pathological fracture
CPT/HCPCS: 77063; 77067; 77080

== ENCOUNTER → 2025-03-17 | Outpatient (CLI) | payer BC, SELFPAY ==
--- OUTSIDE RECORDS SUMMARY | 2025-03-17 07:24 | XMS RPT_ITS | CCD ---
Author Organization [facility] Care Team Providers Care Duralumin Mechanic Name Role Phone Jd PARKINSON, Beti Ellis Unavailable [phone] Aaron Geiger MD Primary Care Provider Dr. Aaron Geiger Primary Care Provider Dr. Aaron Geiger Referring Provider [phone] MAHOGANY Forde Attending Provider [phone] CHADWICK TO Attending Unavailabl e SUJATA JENNINGS Referring Unavailable GEIGER, AARON A Primary Care Unavailable SUJATA JENNINGS Referring Unavailable GEIGER, AARON A Primary Care Unavailable LEIGH KNAPP Attending Unavailable GEIGER, AARON A Referring Unavailable GEIGER, AARON A Primary Care Unavailable GEIGER, AARON A Primary Care Unavailable JUANJO, AARON A Primary Care Unavailable CHADWICK TO Referring Unavailabl e CHADWICK TO Referring Unavailabl e GEIGER, AARON A Primary Care Unavailable Beti Miles MD Unavailable [phone] Aaron Geiger MD Primary Care Provider Beti Miles Attending Unavailable Beti Miles Referring Unavailable Juanjo, Aaron Primary Care Unavailable Aaron Geiger Attending Unavailable Juanjo, Aaron Primary Care Unavailable Geiger, Aaron Primary Care Unavailable Pam Hernández Attending Unavailable Allergies Allergy Classification Reported Allergen(s) Allergy Type Date of Onset Reaction(s) Facility (4 sources) Adhesive Tape; Translations: [adhesive tape] Allergy to substance 9 [facility] Repository (11 sources) Adhesive agent; Translations: [ADHESIVE] Drug Allergy 9 Unknown, Breanna [facility] Work Phone: Medications Current Medications Medication Drug Class(es) Dates Sig (Normalized) Sig (Original) amLODIPine 5 mg oral tablet (10 sources) Dihydropyridine Calcium Channel Tyshawn Start: 05-23-2020 take 1 tablet by mouth once daily amLODIPine (NORVASC) 5 mg tablet Take 5 mg by mouth once daily. 05/23/2020 Active Comment on above: Take 5 mg by mouth o nce daily. 24 hr buPROPion hydrochloride 150 mg extended release oral tablet (14 sources) Aminoketone Start: 05-26-2019 buPROPion XL (WELLBUTRIN XL) 150 mg 24 hr tablet Start: 08-29-2018 take 1 tablet by acrmenza th once daily buPROPion XL (WELLBUTRIN XL) 150 mg 24 hr tablet Take 150 mg by mouth once daily. 05/26/2019 Active Comment on above: Take 150 mg by mouth once daily. cholecalciferol 0.025 mg oral tablet (14 sources) Vitamin D Start: 08-29-20 18 take 1 tablet by mouth once daily VITAMIN D 1,000 unit (25 mcg) tab tablet Take 1,000 Units by mouth once daily. 2 05/28/2019 Active Comment on above: Take 1,000 Units by mouth once daily. levothyroxine sodium 0.088 mg oral tablet (14 sources) l-Thyroxine Start: 12-08-19 13 take 1 tablet by mouth once daily levothyroxine 88 mcg tablet Indications: Hypothyroidism Take 1 tablet by mouth once daily. 90 tablet 3 12/07/2012 Active Comment on above: Take 1 tablet by carmenza th once daily. losartan potassium 50 mg oral tablet (14 sources) Angiotensin 2 Receptor Tyshawn Start: 05-23-20 20 take 1 tablet by mouth once daily losartan (COZAAR) 50 mg tablet Take 50 mg by mouth once daily. 05/23/2020 Active Start: 08-29-2018 take 25 mg by mouth once daily Losartan Active 25 MG PO DAILY August 29, 2018 1:00am Comment on above: Take 50 mg by mouth once daily. Magnesium (4 sources) Start: 08-29-2018 take 500 mg by mouth once daily Magnesium Active 500 MG PO DAILY August 29, 2018 12:00am Start: 08-29-2018 take 500 mg by mouth once cat y Magnesium Active 500 MG PO DAILY August 29, 2018 1:00am modified 24 hr metFORMIN hydrochloride 500 mg extended release oral tablet (14 sources) Biguanide Start: 07-20-2016 take 2000 mg by mouth at bedtime Metformin Active 2000 MG PO AT BEDTIME July 20, 2016 1:00am Start: 12-07-2012 take 4 tablets by mo [facility] once daily metFORMIN ER 500 mg 24 hr tablet Indications: PCOS (polycystic ovarian syndrome) Take 4 tablets by mouth once daily. 360 tablet 3 12/07/2012 Active Comment on above: Take 4 tablets by mo [facility] once daily. perflutren lipid microspheres 1.3 mL in NaCl (PF) 0.9% 10 mL injection (DEFINITY) (6 sources) Start: 12-08-19 End: 03-07-20 perflutren lipid microspheres 1.3 mL in NaCl (PF) 0.9% 10 mL injection (DEFINITY) rosuvastatin calcium 5 mg oral tablet (10 sources) HMG-CoA Reductase Inhibitor Start: 05-30-20 take 1 tablet by mouth every other day rosuvastatin (CRESTOR) 5 mg tablet Take 5 mg by mouth every other day. 05/30/2018 Active Comment on above: Take 5 mg by mouth e very other day. 125 ml sodium chloride 9 mg/ml prefilled syringe (6 sources) Start: 12-08-19 End: 03-07-20 sodium chloride 0.9 % (flush) 10 mL (BD POSIFLUSH) spironolactone 25 mg oral tablet (10 sources) Aldosterone Antagonist Start: 05-30-20 take 1 tablet by mouth once daily spironolactone (ALDACTONE) 25 mg tablet Take 25 mg by mouth once daily. 05/30/2020 Active Comment on above: Take 25 mg by mouth once daily. Vitamin B Complex (10 sources) take 1 tablet by mouth once daily vitamin B complex (B-COMPLEX ORAL) Take 1 tablet by mouth once daily. Active take 1 tablet by mouth once cat y vitamin B complex (B-COMPLEX ORAL) Take 1 tablet by mouth once daily. 0 Active vitamin B comple x (B-COMPLEX ORAL) Take by mouth. 0 Active Comment on above: Take by mouth. [facility] VITAMIN E ORAL (1 source) VITAMIN E ORAL T selena by mouth. Active Completed/Discontinued Medications Medication Drug Class(es) Dates Sig (Normalized) Sig (Original) acetaminophen 325 mg / HYDROcodone bitartrate 5 mg oral tablet (1 source) Opioid Agonist Start: 03-23-2024 End: 06-14-2024 HYDROcodone-acetam inophen (NORCO) 5-325 mg per tablet 03/23/2024 06/14/2024 Discontinued cloNIDine hydrochloride 0.1 mg oral tablet (10 sources) Central alpha-2 Adrenergic Agonist Start: 05-23-2020 End: 06-14-2024 take 1 tablet by mouth once daily cloNIDine HCl (CATAPRES) 0.1 mg tablet Take 0.1 mg by mouth once daily. 05/23/2020 06/14/2024 Discontinued Comment on above: Take 0.1 mg by mouth once daily. famotidine 40 mg oral tablet (2 sources) Histamine-2 Receptor Antagonist Start: 05-04-2023 End: 06-14-2024 famotidine (PEPCID) 40 mg tablet 05/04/2023 06/14/2024 Discontinued predniSONE 10 mg oral tablet (1 source) Start: 04-21-2023 End: 05-03-2023 Prednisone Discontinued 10 MG PO daily 30 April 21, 2023 12:00am May 03, 2023 12:04am Take 4 tabs once daily days 1-3 3 tabs once daily days 4-6 2 tabs once daily days 7-9 and 1 tab once daily days 10-12. Problems Active Problems Problem Classification Problem Date Documented Date Episodic/Chronic Allergic reactions (2 sources) Irritant contact dermatitis due to plant; Translations: [Irritant contact dermatitis due to plants, except food] 04-21-2023 Episodic Disorders of lipid metabolism (10 sources) Hyperlipidemia; Translations: [Hyperlipidemia, unspecified] Onset: 08-05-2011 08-05-2011 Chronic Essential hypertension (14 sources) Hypertensive disorder; Translations: [Essential (primary) hypertension] Onset: 12-02-2011 12-02-2011 Chronic Other endocrine disorders (10 sources) Polycystic ovary syndrome; Translations: [Polycystic ovarian syndrome] Onset: 08-05-2011 08-05-2011 Chronic Other liver diseases (1 source) Fatty (change of) liver, not elsewhere classified; Translations: [Fatty (change of) liver, not elsewhere classified] Onset: 04-10-2024 Chronic Other lower respiratory disease (1 source) Dyspnea; Translations: [Shortness of breath] Episodic Other screening for suspected conditions (not mental disorders or infectious disease) (8 sources) Cancer cervix screening status; Translations: [Encounter for screening for malignant neoplasm of cervix] Onset: 09-05-2024 Episodic Residual codes; unclassified (2 sources) Menopause present; Translations: [Asymptomatic menopausal state] Episodic Residual codes; unclassified (3 sources) FH: Cardiomyopathy; Translations: [Family history of ischemic heart disease and other diseases of the circulatory system] Episodic Residual codes; unclassified (3 sources) Genetic mutation; Translations: [Genetic susceptibility to other disease] Episodic Screening and history of mental health and substance abuse codes (1 source) Patient encounter status; Translations: [Encounter for screening for depression] 06-14-2024 Episodic Thyroid disorders (10 sources) Hypothyroidism; Translations: [Hypothyroidism, unspecified] Onset: 09-23-2011 09-23-2011 Chronic Past or Other Problems Problem Classification Problem Date Documented Date Episodic/Chronic Abdominal pain (1 source) Unspecified abdominal pain; Translations: [Unspecified abdominal pain] Onset: 03-23-2024 Episodic Residual codes; unclassified (1 source) Family history of ischemic heart disease and other diseases of the circulatory system; Translations: [Family history of cardiomyopathy] Onset: 12-07-2022 Episodic Residual codes; unclassified (1 source) Genetic susceptibility to other disease; 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 Aaron Geiger MD Status: [facility] Study: Dexa Bone Density Study Date of Exam: 08/03/24 Exam# [id number] Ordering Dr: Beti Miles MD [id number] STUDY: DUAL ENERGY X-RAY ABSORPTIOMETRY / DXA REASON FOR EXAM: Female, 54 years old. M810 TECHNIQUE: Bone Mineral Density (BMD) measurements of lumbar spine and bilateral hips were obtained. COMPARISON: Comparison is made with prior study dated July 28, 2022. FINDINGS: Lumbar Spine (L1-L4): g/cm2 (1.042) / T-score (-0.1) / Z-score (1.1) Findings are suggestive of normal bone density with a low fracture risk. Left Femur Total: g/cm2 (1.028) / T-score (0.7) / Z-score (1.5) Left Femoral Neck: g/cm2 (0.751) / T-score (-0.9) / Z-score (0.2) Right Femur Total: g/cm2 (1.014) / T-score (0.6) / Z-score (1.3) Right Femoral Neck: g/cm2 (0.803) / T-score (-0.4) / Z-score (0.7) The T-Scores on the most recent prior examination were: Lumbar Spine (L1-L4): There has been worsening of bone density since the previous examination. Left Femur Total: which represents a worsening of 0.8%. Right Femur Total: which represents a worsening of 1.9. BD/Dexa Bone Density Study IMPRESSION: The patient is considered normal as outlined below according to World Parvez Organization (WHO) criteria with a low fracture risk. There has been worsening of bone density since the previous examination. Reference Information: The T-score is the number of standard deviations above or below the standard which is normal for young adults at their peak bone mineral density. The World Health Organization (WHO) interprets the T-scores as follows: Above -1 Normal bone density Between -1 and -2.5 Osteopenia Equal to / or below -2.5 Osteoporosis As a practical clinical guideline, osteopenia may be graded as follows: Mild -1 through -1.5 Moderate -1.6 through -2.0 Severe -2.1 through -2.4 The Z-score is the number of standard deviations above or below age-matched controls. A Z-score of less than -1.5 would be considered abnormal. References: 1. NIH Osteoporosis and Related Bone Diseases www osteo.org 2. International Society for Clinical Densitometry www iscd.org 3. National Osteoporosis Foundation www nof.org Electronically Signed: Dony Herrera MD at 9:16 EST , CC: Dr. Aaron Geiger MD; Dr. Beti Miles MD Powdered Sugar Supervisor: Signed [facility] SCRN MAMM (CAD)W/KANA BILATo n 08-03-2024 SCRN MAMM (CAD)W/KANA BILAT [facility] Imaging Services [address] [place] [address] [id number] SCRN MAMM (CAD)W/KNAA BILAT MR#: [id number] Acct: [id number] Name: RADHA HOWARD Rep #: [id number] 3 : 1970 F 54 From: Dony mayes MD PCP: Dr. Aaron Geiger MD Status: [facility] Study: SCRN MAMM (CAD)W/KANA BILAT Date of Exam: 01/20 Exam# [id number] Ordering Dr: Beti Miles MD [id number] MAMMOGRAPHY - BILATERAL SCREENING REASON FOR EXAM: Female, 54 years old. Routine annual screening examination. PERTINENT HISTORY: Aunt with breast cancer. Prior right stereotactic breast biopsy and right excisional breast biopsy. TECHNIQUE: Digital bilateral breast kana (3D mammographic acquisition) in the CC and MLO projections. 2-D mediolateral oblique (MLO) and craniocaudad (CC) views of both breasts were obtained. CAD: Full Field Digital Mammography with Computer Added Detection was performed. COMPARISON: Comparison is made with prior study dated June 29, 2023 and June 26, 2022. FINDINGS: Breast Composition: The breasts are heterogeneously dense, which may obscure small masses. There are no dominant masses or suspicious calcifications. No other significant abnormalities are identified. There has been no significant change since the prior study. BI/SCRN MAMM (CAD)W/KANA BILAT IMPRESSION: Stable bilateral screening mammogram. Yearly follow-up mammogram recommended. (A) ASSESSMENT CATEGORY: BIRADS Category 1: Negative. A letter regarding these results will be sent to the patient by the facility within 30 days. Approximately 10% of breast cancers are not detected by mammography. A normal mammogram should not delay biopsy of a clinically suspicious abnormality. [id number] Electronically Signed: Dony Herrera MD at 8:39 EST Reading Location ID and State: [facility] / [place] , Service support , CC: Dr. Aaron Geiger MD; Dr. Beti Miles MD Powdered Sugar Supervisor: Signed [facility] Abdomen/Pelvis without Conto n 03-23-2024 Abdomen/Pelvis without Cont [facility] Imaging Services [address], [place] [id number] Abdomen/Pelvis without Cont MR#: [id number] Acct: [id number] Name: RADHA HOWARD Rep #: [id number] 1 : 1970 F 54 From: Luis Felipe Zapata MD PCP: Dr. Aaron Geiger MD Status: [facility] Study: Abdomen/Pelvis without Cont Date of Exam: 02/28 01/20 Exam# [id number] Ordering Dr: Pam Hernández MD [id number] EXAM: CT ABDOMEN AND PELVIS WITHOUT INTRAVENOUS CONTRAST CLINICAL INDICATION: right flank pain TECHNIQUE: Helically acquired images were obtained of the abdomen and pelvis without intravenous contrast. This CT exam was performed using one or more of the following dose reduction techniques: automated exposure control, adjustment of the mA and/or kV according to patient size, and/or use of iterative reconstruction technique. RADIATION DOSE: CTDIvol = 15.72 mGy, DLP = 856.19 mGy-cm COMPARISON: No relevant prior studies available. FINDINGS: LOWER THORAX: Unremarkable. Lung bases are clear. No cardiomegaly. No significant pericardial effusion. ABDOMEN: LIVER: Hepatomegaly with fatty infiltration. GALLBLADDER AND BILE DUCTS: Cholecystectomy. No intra- or extrahepatic biliary ductal dilation. PANCREAS: Unremarkable. No focal cystic mass. SPLEEN: Unremarkable. Normal size without focal cystic or solid mass. ADRENALS: Unremarkable. No nodules. KIDNEYS AND URETERS: No ureteral stone or renal obstruction. Normal renal size and position. 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 No stomach or bowel distention. PELVIS: APPENDIX: The appendix is normal. BLADDER: Unremarkable. REPRODUCTIVE: Unremarkable as visualized. No mass. ABDOMEN and PELVIS: INTRAPERITONEAL SPACE: Unremarkable. No ascites or other fluid collection. No free air. BONES/JOINTS: Degenerative changes of the spine. No suspicious lytic or blastic abnormality. SOFT TISSUES: Unremarkable. No discrete abdominal or pelvic wall hernia. VASCULATURE: Unremarkable. Abdominal aorta is non-dilated. LYMPH NODES: Unremarkable. No enlarged lymph nodes. CT/Abdomen/Pelvis without Cont IMPRESSION: 1. No acute abnormalities identified in the abdomen/pelvis. 2. No ureteral stone or renal obstruction. Electronically Signed: Luis Felipe Zapata MD at 4:54 EDT , CC: Dr. Aaron Geiger MD; Dr. Pam Hernández MD Powdered Sugar Supervisor: Signed [facility] Basic Metabolic Profile (BMP )on 03-23-2024 BUN/CRE 17.2 RATIO [facility] Comment on above: Performed By: #### L 500.4050, L502.0250, L501.9520, L501.6400, L501.4900, L100.0100 #### [facility] [address] [place], [address] CA,Total 9.3 mg/dL Normal 8.5-10.1 [facility] Comment on above: Performed By: #### L 500.4050, L502.0250, L501.9520, L501.6400, L501.4900, L100.0100 #### [facility] [address] [place], [address] Chloride [Moles/Vol] 105 mmol/L Normal 98-107 [facility] Comment on above: Performed By: #### L 500.4050, L502.0250, L501.9520, L501.6400, L501.4900, L100.0100 #### [facility] [address] [place], [address] CO2 [Moles/Vol] 25.0 mmol/L Normal 21.0-32.0 [facility] Comment on above: Performed By: #### L 500.4050, L502.0250, L501.9520, L501.6400, L501.4900, L100.0100 #### [facility] [address] [place], [address] Creatinine [Mass/Vol] 0.99 mg/dL Normal 0.55-1.02 [facility] Comment on above: Result Comment: The validity of the calculated GFR GFRAA in patients over 70 years has not been determined. Clinical correlation is essential. Performed By: #### L 500.4050, L502.0250, L501.9520, L501.6400, L501.4900, L100.0100 #### [facility] [address] [place], [address] ECRCL 69.62 ml/min [facility] Comment on above: Performed By: #### L 500.4050, L502.0250, L501.9520, L501.6400, L501.4900, L100.0100 #### [facility] [address] [place], [address] EST GFR - AA 75 mL/min Normal >60 [facility] Comment on above: Result Comment: Afri can Rwandan GFR Calc Performed By: #### L 500.4050, L502.0250, L501.9520, L501.6400, L501.4900, L100.0100 #### [facility] [address] [place], [address] GAP 7 Normal 5-15 [facility] Comment on above: Performed By: #### L 500.4050, L502.0250, L501.9520, L501.6400, L501.4900, L100.0100 #### [facility] [address] [place], [address] GFR/1.73 sq M.predicted among non-blacks MDRD (S/P/Bld) [Vol rate/Area] 62 mL/min/{1.73_m2} Normal >60 [facility] Comment on above: Result Comment: Non- GFR Calc Performed By: #### L 500.4050, L502.0250, L501.9520, L501.6400, L501.4900, L100.0100 #### [facility] [address] [place], [address] Glucose [Mass/Vol] 124 mg/dL High 74-106 [facility] Comment on above: Result Comment: Fast ing Glucose result from 100 to 125 mg/dL suggests IMPAIRED HOMEOSTASIS per A.D.A. criteria. Performed By: #### L 500.4050, L502.0250, L501.9520, L501.6400, L501.4900, L100.0100 #### [facility] [address] [place], [address] Potassium [Moles/Vol] 3.7 mmol/L Normal 3.5-5.1 [facility] Comment on above: Performed By: #### L 500.4050, L502.0250, L501.9520, L501.6400, L501.4900, L100.0100 #### [facility] [address] [place], [address] Sodium [Moles/Vol] 137 mmol/L Normal 136-145 [facility] Comment on above: Performed By: #### L 500.4050, L502.0250, L501.9520, L501.6400, L501.4900, L100.0100 #### [facility] [address] [place], [address] Urea nitrogen [Mass/Vol] 17 mg/dL Normal 7-18 [facility] Comment on above: Performed By: #### L 500.4050, L502.0250, L501.9520, L501.6400, L501.4900, L100.0100 #### [facility] [address] [place], [address] CBC W/Diff, Automatedon 07-2 -2023 Absolute Lymph 2.67 X10 3/uL Normal 0.83-4.51 [facility] Comment on above: Performed By: #### L 500.4050, L502.0250, L501.9520, L501.6400, L501.4900, L100.0100 #### [facility] [address] [place], [address] Absolute Neut 4.2 X10 3/uL Normal 2.0-7.7 [facility] Comment on above: Performed By: #### L 500.4050, L502.0250, L501.9520, L501.6400, L501.4900, L100.0100 #### [facility] [address] [place], [address] Basophils/100 WBC (Bld) 0.7 % Normal 0-1 [facility] Comment on above: Performed By: #### L 500.4050, L502.0250, L501.9520, L501.6400, L501.4900, L100.0100 #### [facility] [address] [place], [address] Eosinophils/100 WBC (Bld) 7.1 % High 0-5 [facility] Comment on above: Performed By: #### L 500.4050, L502.0250, L501.9520, L501.6400, L501.4900, L100.0100 #### [facility] [address] [place], [address] Erythrocyte distribution width (RBC) [Ratio] 12.9 % Normal 11.6-14.6 [facility] Comment on above: Performed By: #### L 500.4050, L502.0250, L501.9520, L501.6400, L501.4900, L100.0100 #### [facility] [address] [place], [address] Hematocrit (Bld) [Volume fraction] 41.0 % Normal 37-47 [facility] Comment on above: Performed By: #### L 500.4050, L502.0250, L501.9520, L501.6400, L501.4900, L100.0100 #### [facility] [address] [place], [address] Hemoglobin (Bld) [Mass/Vol] 13.6 g/dL Normal 12.0-15.0 [facility] Comment on above: Performed By: #### L 500.4050, L502.0250, L501.9520, L501.6400, L501.4900, L100.0100 #### [facility] [address] [place], [address] IG% 0.400 Normal 0.0-0.9 [facility] Comment on above: Result Comment: IG% - Immature Granulocytes (promyelocytes, myelocytes and metamyelocytes) > 1% indicates that a LEFT SHIFT is Present. Performed By: #### L 500.4050, L502.0250, L501.9520, L501.6400, L501.4900, L100.0100 #### [facility] [address] [place], [address] Lymphocytes/100 WBC (Bld) 31.8 % Normal 19-41 [facility] Comment on above: Performed By: #### L 500.4050, L502.0250, L501.9520, L501.6400, L501.4900, L100.0100 #### [facility] [address] [place], [address] MCH (RBC) [Entitic mass] 29.2 pg Normal 27.0-32.0 [facility] Comment on above: Performed By: #### L 500.4050, L502.0250, L501.9520, L501.6400, L501.4900, L100.0100 #### [facility] [address] [place], [address] MCHC (RBC) [Mass/Vol] 33.2 g/dL Normal 32-36 [facility] Comment on above: Performed By: #### L 500.4050, L502.0250, L501.9520, L501.6400, L501.4900, L100.0100 #### [facility] [address] [place], [address] MCV (RBC) [Entitic vol] 88.2 fL Normal 81-99 [facility] Comment on above: Performed By: #### L 500.4050, L502.0250, L501.9520, L501.6400, L501.4900, L100.0100 #### [facility] [address] [place], [address] Monocytes/100 WBC (Bld) 10.1 % High 0-10 [facility] Comment on above: Performed By: #### L 500.4050, L502.0250, L501.9520, L501.6400, L501.4900, L100.0100 #### [facility] [address] [place], [address] Neutrophils/100 WBC (Bld) 49.9 % Normal 47-70 [facility] Comment on above: Performed By: #### L 500.4050, L502.0250, L501.9520, L501.6400, L501.4900, L100.0100 #### [facility] [address] [place], [address] Nucleated RBC (Bld) [#/Vol] 0 10*3/uL Normal 0-5 [facility] Comment on above: Performed By: #### L 500.4050, L502.0250, L501.9520, L501.6400, L501.4900, L100.0100 #### [facility] [address] [place], [address] Platelet mean volume (Bld) [Entitic vol] 10.7 fL Normal 6.2-12.0 [facility] Comment on above: Performed By: #### L 500.4050, L502.0250, L501.9520, L501.6400, L501.4900, L100.0100 #### [facility] [address] [place], [address] Platelets (Bld) [#/Vol] 242 10*3/uL Normal 150-450 [facility] Comment on above: Performed By: #### L 500.4050, L502.0250, L501.9520, L501.6400, L501.4900, L100.0100 #### [facility] [address] [place], [place], [address] RBC (Bld) [#/Vol] 4.65 10*6/uL Normal 4.2-5.4 [facility] Comment on above: Performed By: #### L 500.4050, L502.0250, L501.9520, L501.6400, L501.4900, L100.0100 #### [facility] [address] [place], [address] RDW SD 41.7 fl Normal 35.1-43.9 [facility] Comment on above: Performed By: #### L 500.4050, L502.0250, L501.9520, L501.6400, L501.4900, L100.0100 #### [facility] [address] [place], [address] WBC (Bld) [#/Vol] 8.4 10*3/uL Normal 4.4-11.0 [facility] Comment on above: Performed By: #### L 500.4050, L502.0250, L501.9520, L501.6400, L501.4900, L100.0100 #### [facility] [address] [place], [address] Emergency Department Summary on 03-23-2024 Emergency Department Summary [facility] Medical Records Department [address] [place] [address] Emergency Department Summary 03/23/24 MR#: [id number] Acct: [id number] Name: RADHA HOWARD Rep #: [id number] 3 : 1970 54 From: Pam Hernández MD PCP: Dr. Aaron Geiger MD Status:DEP ER Location: ED HPI History of Present Illness Chief Complaint: Flank Pain Informant: patient Onset/Context/Timing Onset: Today Narrative Narrative: Patient presents secondary to right flank pain that started about an hour ago when she rolled over in bed. She felt well when she went to bed last night. She denies urinary symptoms, nausea, or vomiting. No history of kidney stones. She has had a prior cholecystectomy. [facility] Medical History HTN (hypertension) PCOS (polycystic ovarian syndrome) Hypothyroid Home Medications ???Medication ???Instructions ???Recorded ???Last Taken ???Type levothyroxine 88 mcg tablet 88 mcg PO QHS 07/20/16 Unknown History metformin 500 mg 24 hr 2,000 mg PO QHS 07/20/16 Unknown History tablet,extended release (gastric retention) bupropion HCl 150 mg 24 hr tablet, 150 mg PO DAILY 08/29/18 Unknown History extended release (Wellbutrin XL) cholecalciferol (vitamin D3) 25 1,000 unit PO DAILY 08/29/18 Unknown History mcg (1,000 unit) tablet (Vitamin D3) losartan 25 mg tablet 25 mg PO DAILY 08/29/18 Unknown History magnesium 250 mg tablet 500 mg PO DAILY 08/29/18 Unknown History hydrocodone-acetaminop hen 5-325mg 1 tab PO Q6H PRN PRN Pain 3 days 03/23/24 Unknown Rx 5mg-325mg #10 TABLETS naproxen 500 mg tablet (Naprosyn) 500 mg PO BID PRN pain #20 tabs 03/23/24 Unknown Rx ondansetron 4 mg disintegrating 4 mg PO Q8H PRN PRN Nausea #10 tabs 03/23/24 Unknown Rx tablet Allergy/AdvReac Type Severity Reaction Status Date / Time adhesive tape Allergy Rash Verified 03/23/24 04:08 Surgical History H/O lumpectomy History of delivery History of orthopedic surgery Hx of tonsillectomy Hx of cholecystectomy Social History Smoking Status: Never smoker ROS ROS ED Constitutional Constitutional ED: Denies chills or fever(s) Eyes Eyes: Denies discharge from eye(s) ENT ENT ED: Denies discharge from eye(s), rhinorrhea or sore throat Cardiovascular Cardiovascular: Denies chest pain or palpitations Respiratory/Chest Respiratory/Chest: Denies cough or dyspnea Gastrointestinal Gastrointestinal: Reports abdominal pain; Denies diarrhea, nausea or vomiting Genitourinary Genitourinary ED: Denies dysuria, hematuria or urinary frequency Musculoskeletal Musculoskeletal: Reports back pain; Denies extremity pain Integumentary Denies Abrasions or rash Neurologic Neurologic: Denies headache(s) or weakness Allergic/Immunologic Allergic/Immunologic ED: Denies lip swelling or urticaria EXAM Physical Exam Const Vital Signs: 03/23/24 04:02 Temperature 97 F L Temperature Source Temporal Pulse Rate 77 Respiratory Rate 16 Blood Pressure 144/97 H Blood Pressure Mean 112 Pulse Ox 97 Positive well nourished and well developed General Appearance ED: well developed HEENT Reports moist mucous membranes Eyes EOMs intact bilaterally Neck no lymphadenopathy Chest Wall inspection of chest normal and palpation of chest normal Resp normal respiratory effort and clear to auscultation bilaterally Cardio regular rate and regular rhythm GI non-tender Palpation: soft Back/Spine General Back: CVA tenderness right Extremity normal to inspection Neuro oriented x3 and no sensory deficits noted Motor Exam: strength 5/5 throughout Psych mental status grossly normal Skin no rashes or lesions noted MDM MDM MDM Narrative Medical decision making narrative: IV line established. Patient given Toradol and Zofran along with IV fluids. Labwork obtained to evaluate for leukocytosis, anemia, and electrolyte derangement. Urinalysis obtained to evaluate for infection/hematuria. CT flank obtained to evaluate for appendicitis, kidney stone, colitis. History Record Review Discussion w/independent historian: Patient Lab Data Attestation: I reviewed the patient's lab results. Labs: Laboratory Results - last 24 hr 03/23/24 03/23/24 04:15 04:28 WBC 8.4 RBC 4.65 Hgb 13.6 Hct 41.0 MCV 88.2 MCH 29.2 MCHC 33.2 RDW Std Deviation 41.7 RDW Coeff of Malini 12.9 Plt Count 242 MPV 10.7 Immature Gran % (Auto) 0.400 Neut % (Auto) 49.9 Lymph % (Auto) 31.8 [place] % (Auto) 10.1 H Eos % (Auto) 7.1 H Baso % (Auto) 0.7 Absolute Neuts (auto) 4.2 Absolute (more content not included)... Normal [facility] Lipaseon 03-23-2024 Lipase [Catalytic activity/Vol] 51 U/L Normal 13-75 [facility] Comment on above: Result Comment: Amara gant note: LIPASE revised reference range effective 22. New Lipase methodology. Expected to produce lower values than the previous assay method. NEW Reference Range: 13 - 75 U/L Performed By: #### L 500.4050, L502.0250, L501.9520, L501.6400, L501.4900, L100.0100 #### [facility] [address] [place], [address] Liver Profileon 03-23-2024 Albumin [Mass/Vol] 4.1 g/dL Normal 3.2-5.0 [facility] Comment on above: Performed By: #### L 500.4050, L502.0250, L501.9520, L501.6400, L501.4900, L100.0100 #### [facility] [address] [place], [address] ALK P 47 U/L Normal 45-117 [facility] Comment on above: Performed By: #### L 500.4050, L502.0250, L501.9520, L501.6400, L501.4900, L100.0100 #### [facility] [address] [place], [address] ALT [Catalytic activity/Vol] 47 U/L Normal 13-56 [facility] Comment on above: Performed By: #### L 500.4050, L502.0250, L501.9520, L501.6400, L501.4900, L100.0100 #### [facility] [address] [place], [address] AST [Catalytic activity/Vol] 31 U/L Normal 15-37 [facility] Comment on above: Performed By: #### L 500.4050, L502.0250, L501.9520, L501.6400, L501.4900, L100.0100 #### [facility] [address] [place], [address] Bilirubin [Mass/Vol] 0.50 mg/dL Normal 0.20-1.00 [facility] Comment on above: Result Comment: For patients on eltrombopag therapy, use of Dimension [place] TBIL is not recommended. Performed By: #### L 500.4050, L502.0250, L501.9520, L501.6400, L501.4900, L100.0100 #### [facility] [address] [place], [address] Bilirubin.direct [Mass/Vol] 0.18 mg/dL Normal 0.00-0.30 [facility] Comment on above: Performed By: #### L 500.4050, L502.0250, L501.9520, L501.6400, L501.4900, L100.0100 #### [facility] [address] [place], [address] Globulin (S) [Mass/Vol] 3.2 g/dL Normal 2.2-4.2 [facility] Comment on above: Performed By: #### L 500.4050, L502.0250, L501.9520, L501.6400, L501.4900, L100.0100 #### [facility] [address] [place], [address] T PROT 7.3 g/dL Normal 6.4-8.2 [facility] Comment on above: Performed By: #### L 500.4050, L502.0250, L501.9520, L501.6400, L501.4900, L100.0100 #### [facility] [address] [place], [address] Urinalysis, Completeon 03-23 EPI,SQUAMOUS 5-10 SEEN Normal 5-10 [facility] Comment on above: Order Comment: CLEAN CATCH Performed By: #### L 400.0001 #### [facility] [address] [place], [address] BACTERIA 0 SEEN Normal None Seen [facility] Comment on above: Order Comment: CLEAN CATCH Performed By: #### L 400.0001 #### [facility] [address] [place], [address] Mucus Ql (Urine sed) 0 SEEN Normal [facility] Comment on above: Order Comment: CLEAN CATCH Performed By: #### L 400.0001 #### [facility] [address] [place], [address] RBC 0 SEEN Normal 0-5 [facility] Comment on above: Order Comment: CLEAN CATCH Performed By: #### L 400.0001 #### [facility] [address] [place], [address] WBC 0 SEEN Normal 0-5 [facility] Comment on above: Order Comment: CLEAN CATCH Performed By: #### L 400.0001 #### [facility] [address] [place], [address] CBC W/Diff, Automatedon 07-2 -2023 Absolute Lymph 3.07 X10 3/uL Normal 0.83-4.51 [facility] Comment on above: Order Comment: Order Date: 03/20/24 Order Info: 0184-1 - CBCD Performed By: #### L 500.4050, L502.0250, L501.9520, L501.6400, L501.4900, L100.0100 #### [facility] [address] [place], [address] Absolute Neut 4.3 X10 3/uL Normal 2.0-7.7 [facility] Comment on above: Order Comment: Order Date: 03/20/24 Order Info: 0184-1 - CBCD Performed By: #### L 500.4050, L502.0250, L501.9520, L501.6400, L501.4900, L100.0100 #### [facility] [address] [place], [address] Basophils/100 WBC (Bld) 0.9 % Normal 0-1 [facility] Comment on above: Order Comment: Order Date: 03/20/24 Order Info: 0184-1 - CBCD Performed By: #### L 500.4050, L502.0250, L501.9520, L501.6400, L501.4900, L100.0100 #### [facility] [address] [place], [address] Eosinophils/100 WBC (Bld) 7.2 % High 0-5 [facility] Comment on above: Order Comment: Order Date: 03/20/24 Order Info: 0184-1 - CBCD Performed By: #### L 500.4050, L502.0250, L501.9520, L501.6400, L501.4900, L100.0100 #### [facility] [address] [place], [address] Erythrocyte distribution width (RBC) [Ratio] 13.1 % Normal 11.6-14.6 [facility] Comment on above: Order Comment: Order Date: 03/20/24 Order Info: 0184-1 - CBCD Performed By: #### L 500.4050, L502.0250, L501.9520, L501.6400, L501.4900, L100.0100 #### [facility] [address] [place], [address] Hematocrit (Bld) [Volume fraction] 41.9 % Normal 37-47 [facility] Comment on above: Order Comment: Order Date: 03/20/24 Order Info: 0184-1 - CBCD Performed By: #### L 500.4050, L502.0250, L501.9520, L501.6400, L501.4900, L100.0100 #### [facility] [address] [place], [address] Hemoglobin (Bld) [Mass/Vol] 13.7 g/dL Normal 12.0-15.0 [facility] Comment on above: Order Comment: Order Date: 03/20/24 Order Info: 0184 - CBCD Performed By: #### L 500.4050, L502.0250, L501.9520, L501.6400, L501.4900, L100.0100 #### [facility] [address] [place], [address] IG% 0.300 Normal 0.0-0.9 [facility] Comment on above: Order Comment: Order Date: 03/20/24 Order Info: 01811-28 - CBCD Result Comment: IG% - Immature Granulocytes (promyelocytes, myelocytes and metamyelocytes) > 1% indicates that a LEFT SHIFT is Present. Performed By: #### L 500.4050, L502.0250, L501.9520, L501.6400, L501.4900, L100.0100 #### [facility] [address] [place], [address] Lymphocytes/100 WBC (Bld) 34.4 % Normal 19-41 [facility] Comment on above: Order Comment: Order Date: 03/20/24 Order Info: 0184- - CBCD Performed By: #### L 500.4050, L502.0250, L501.9520, L501.6400, L501.4900, L100.0100 #### [facility] [address] [place], [address] MCH (RBC) [Entitic mass] 29.3 pg Normal 27.0-32.0 [facility] Comment on above: Order Comment: Order Date: 03/20/24 Order Info: 0184-1 - CBCD Performed By: #### L 500.4050, L502.0250, L501.9520, L501.6400, L501.4900, L100.0100 #### [facility] [address] [place], [address] MCHC (RBC) [Mass/Vol] 32.7 g/dL Normal 32-36 [facility] Comment on above: Order Comment: Order Date: 03/20/24 Order Info: 0184-1 - CBCD Performed By: #### L 500.4050, L502.0250, L501.9520, L501.6400, L501.4900, L100.0100 #### [facility] [address] [place], [address] MCV (RBC) [Entitic vol] 89.7 fL Normal 81-99 [facility] Comment on above: Order Comment: Order Date: 03/20/24 Order Info: 0184-1 - CBCD Performed By: #### L 500.4050, L502.0250, L501.9520, L501.6400, L501.4900, L100.0100 #### [facility] [address] [place], [address] Monocytes/100 WBC (Bld) 9.3 % Normal 0-10 [facility] Comment on above: Order Comment: Order Date: 03/20/24 Order Info: 0184-1 - CBCD Performed By: #### L 500.4050, L502.0250, L501.9520, L501.6400, L501.4900, L100.0100 #### [facility] [address] [place], [address] Neutrophils/100 WBC (Bld) 47.9 % Normal 47-70 [facility] Comment on above: Order Comment: Order Date: 03/20/24 Order Info: 0184-1 - CBCD Performed By: #### L 500.4050, L502.0250, L501.9520, L501.6400, L501.4900, L100.0100 #### [facility] [address] [place], [address] Nucleated RBC (Bld) [#/Vol] 0 10*3/uL Normal 0-5 [facility] Comment on above: Order Comment: Order Date: 03/20/24 Order Info: 0184-1 - CBCD Performed By: #### L 500.4050, L502.0250, L501.9520, L501.6400, L501.4900, L100.0100 #### [facility] [address] [place], [address] Platelet mean volume (Bld) [Entitic vol] 11.1 fL Normal 6.2-12.0 [facility] Comment on above: Order Comment: Order Date: 03/20/24 Order Info: 0184- - CBCD Performed By: #### L 500.4050, L502.0250, L501.9520, L501.6400, L501.4900, L100.0100 #### [facility] [address] [place], [address] Platelets (Bld) [#/Vol] 260 10*3/uL Normal 150-450 [facility] Comment on above: Order Comment: Order Date: 03/20/24 Order Info: 0184-1 - CBCD Performed By: #### L 500.4050, L502.0250, L501.9520, L501.6400, L501.4900, L100.0100 #### [facility] [address] [place], [address] RBC (Bld) [#/Vol] 4.67 10*6/uL Normal 4.2-5.4 [facility] Comment on above: Order Comment: Order Date: 03/20/24 Order Info: 0184-1 - CBCD Performed By: #### L 500.4050, L502.0250, L501.9520, L501.6400, L501.4900, L100.0100 #### [facility] [address] [place], [address] RDW SD 42.9 fl Normal 35.1-43.9 [facility] Comment on above: Order Comment: Order Date: 03/20/24 Order Info: 0184-1 - CBCD Performed By: #### L 500.4050, L502.0250, L501.9520, L501.6400, L501.4900, L100.0100 #### [facility] [address] [place], [address] WBC (Bld) [#/Vol] 8.9 10*3/uL Normal 4.4-11.0 [facility] Comment on above: Order Comment: Order Date: 03/20/24 Order Info: 0184-1 - CBCD Performed By: #### L 500.4050, L502.0250, L501.9520, L501.6400, L501.4900, L100.0100 #### [facility] [address] [place], [address] Cholesterolon 03-20-2024 Cholesterol [Mass/Vol] 144 mg/dL Normal 200 [facility] Comment on above: Order Comment: Order Date: 03/20/24 Order Info: 0786-1 - CMP Order Info: 2093-3 - CHOL Order Info: 2085-9 - HDL Order Info: 3016-3 - TSH Result Comment: <200 mg/dL Desirable 200-240 mg/dL Borderline >240 mg/dL High Risk Performed By: #### L 500.4050, L502.0250, L501.9520, L501.6400, L501.4900, L100.0100 #### [facility] [address] [place], [address] Comprehensive Metabolic Prof ilon 03-20-2024 Albumin [Mass/Vol] 4.3 g/dL Normal 3.2-5.0 [facility] Comment on above: Order Comment: Order Date: 03/20/24 Order Info: 785-08 - CMP Order Info: 2092-10 - CHOL Order Info: 2085-04 - HDL Order Info: 3015-10 - TSH Performed By: #### L 500.4050, L502.0250, L501.9520, L501.6400, L501.4900, L100.0100 #### [facility] [address] [place], [address] Albumin/Globulin [Mass ratio] 1.2 {ratio} Normal 0.9-2.4 [facility] Comment on above: Order Comment: Order Date: 03/20/24 Order Info: 785-08 - CMP Order Info: 2092-10 - CHOL Order Info: 2085-04 HDL Order Info: 3015-10 - TSH Performed By: #### L 500.4050, L502.0250, L501.9520, L501.6400, L501.4900, L100.0100 #### [facility] [address] [place], [address] ALK P 41 U/L Low 45-117 [facility] Comment on above: Order Comment: Order Date: 03/20/24 Order Info: 785-08 - CMP Order Info: 2092-10 - CHOL Order Info: 2085-04 HDL Order Info: 3015-10 - TSH Performed By: #### L 500.4050, L502.0250, L501.9520, L501.6400, L501.4900, L100.0100 #### [facility] [address] [place], [address] ALT [Catalytic activity/Vol] 50 U/L Normal 13-56 [facility] Comment on above: Order Comment: Order Date: 03/20/24 Order Info: 785-08 - CMP Order Info: 2092-10 CHOL Order Info: 2085-04 HDL Order Info: 3015-10 - TSH Performed By: #### L 500.4050, L502.0250, L501.9520, L501.6400, L501.4900, L100.0100 #### [facility] [address] [place], [address] AST [Catalytic activity/Vol] 42 U/L High 15-37 [facility] Comment on above: Order Comment: Order Date: 03/20/24 Order Info: 785-1 - CMP Order Info: 2092-10 - CHOL Order Info: 2085-04 - HDL Order Info: 3 - TSH Performed By: #### L 500.4050, L502.0250, L501.9520, L501.6400, L501.4900, L100.0100 #### [facility] [address] [place], [address] Bilirubin [Mass/Vol] 0.60 mg/dL Normal 0.20-1.00 [facility] Comment on above: Order Comment: Order Date: 03/20/24 Order Info: 785-08 - CMP Order Info: 2092-10 - CHOL Order Info: 2085-04 HDL Order Info: 3015-3 - TSH Result Comment: For patients on eltrombopag therapy, use of Dimension [place] TBIL is not recommended. Performed By: #### L 500.4050, L502.0250, L501.9520, L501.6400, L501.4900, L100.0100 #### [facility] [address] [place], [address] BUN/CRE 20.9 RATIO High 10-20 [facility] Comment on above: Order Comment: Order Date: 03/20/24 Order Info: 785-08 - CMP Order Info: 2092-10 - CHOL Order Info: 2085-04 HDL Order Info: 3 - TSH Performed By: #### L 500.4050, L502.0250, L501.9520, L501.6400, L501.4900, L100.0100 #### [facility] [address] [place], [address] CA,Total 9.5 mg/dL Normal 8.5-10.1 [facility] Comment on above: Order Comment: Order Date: 03/20/24 Order Info: 785-08 - CMP Order Info: 2092-10 - CHOL Order Info: 2085-04 - HDL Order Info: 3015-10 - TSH Performed By: #### L 500.4050, L502.0250, L501.9520, L501.6400, L501.4900, L100.0100 #### [facility] [address] [place], [address] Chloride [Moles/Vol] 101 mmol/L Normal 98-107 [facility] Comment on above: Order Comment: Order Date: 03/20/24 Order Info: 785-08 - CMP Order Info: 2092-10 - CHOL Order Info: 2085-04 HDL Order Info: 3015-10 - TSH Performed By: #### L 500.4050, L502.0250, L501.9520, L501.6400, L501.4900, L100.0100 #### [facility] [address] [place], [address] CO2 [Moles/Vol] 26.0 mmol/L Normal 21.0-32.0 [facility] Comment on above: Order Comment: Order Date: 03/20/24 Order Info: 785-08 - CMP Order Info: 2092-10 - CHOL Order Info: 2085-04 HDL Order Info: 3015-10 - TSH Performed By: #### L 500.4050, L502.0250, L501.9520, L501.6400, L501.4900, L100.0100 #### [facility] [address] [place], [address] Creatinine [Mass/Vol] 0.91 mg/dL Normal 0.55-1.02 [facility] Comment on above: Order Comment: Order Date: 03/20/24 Order Info: 785-08 - CMP Order Info: 2092-10 - CHOL Order Info: 2085-9 - HDL Order Info: 3015-10 - TSH Result Comment: The validity of the calculated GFR GFRAA in patients over 70 years has not been determined. Clinical correlation is essential. Performed By: #### L 500.4050, L502.0250, L501.9520, L501.6400, L501.4900, L100.0100 #### [facility] [address] [place], [address] EST GFR - AA 82 mL/min Normal >60 [facility] Comment on above: Order Comment: Order Date: 03/20/24 Order Info: 785-08 - CMP Order Info: 2092-10 - CHOL Order Info: 2085-04 HDL Order Info: 3015-10 - TSH Result Comment: Afri can [place] GFR Calc Performed By: #### L 500.4050, L502.0250, L501.9520, L501.6400, L501.4900, L100.0100 #### [facility] [address] [place], [address] GAP 8 Normal 5-15 [facility] Comment on above: Order Comment: Order Date: 03/20/24 Order Info: 785-08 - CMP Order Info: 2092-10 CHOL Order Info: 2085-04 HDL Order Info: 3015-10 - TSH Performed By: #### L 500.4050, L502.0250, L501.9520, L501.6400, L501.4900, L100.0100 #### [facility] [address] [place], [place], [address] GFR/1.73 sq M.predicted among non-blacks MDRD (S/P/Bld) [Vol rate/Area] 68 mL/min/{1.73_m2} Normal >60 [facility] Comment on above: Order Comment: Order Date: 03/20/24 Order Info: 785-1 - CMP Order Info: 2092-10 - CHOL Order Info: 2085-04 HDL Order Info: 3015-10 - TSH Result Comment: Non- GFR Calc Performed By: #### L 500.4050, L502.0250, L501.9520, L501.6400, L501.4900, L100.0100 #### [facility] [address] [place], [address] Globulin (S) [Mass/Vol] 3.6 g/dL Normal 2.2-4.2 [facility] Comment on above: Order Comment: Order Date: 03/20/24 Order Info: 785-08 - CMP Order Info: 2092-10 - CHOL Order Info: 2085-04 - HDL Order Info: 3015-10 - TSH Performed By: #### L 500.4050, L502.0250, L501.9520, L501.6400, L501.4900, L100.0100 #### [facility] [address] [place], [address] Glucose [Mass/Vol] 88 mg/dL Normal 74-106 [facility] Comment on above: Order Comment: Order Date: 03/20/24 Order Info: 785-08 - CMP Order Info: 2092-10 - CHOL Order Info: 2085-04 - HDL Order Info: 3015-10 - TSH Performed By: #### L 500.4050, L502.0250, L501.9520, L501.6400, L501.4900, L100.0100 #### [facility] [address] [place], [address] Potassium [Moles/Vol] 4.4 mmol/L Normal 3.5-5.1 [facility] Comment on above: Order Comment: Order Date: 03/20/24 Order Info: 785-08 - CMP Order Info: 2092-10 - CHOL Order Info: 2085-04 - HDL Order Info: 3015-10 - TSH Performed By: #### L 500.4050, L502.0250, L501.9520, L501.6400, L501.4900, L100.0100 #### [facility] [address] [place], [address] Sodium [Moles/Vol] 135 mmol/L Low 136-145 [facility] Comment on above: Order Comment: Order Date: 03/20/24 Order Info: 785- - CMP Order Info: 2092-10 - CHOL Order Info: 2085-04 - HDL Order Info: 3015-10 - TSH Performed By: #### L 500.4050, L502.0250, L501.9520, L501.6400, L501.4900, L100.0100 #### [facility] [address] [place], [address] T PROT 7.9 g/dL Normal 6.4-8.2 [facility] Comment on above: Order Comment: Order Date: 03/20/24 Order Info: 785-08 - CMP Order Info: 2092-10 - CHOL Order Info: 2085-04 - HDL Order Info: 3015-10 - TSH Performed By: #### L 500.4050, L502.0250, L501.9520, L501.6400, L501.4900, L100.0100 #### [facility] [address] [place], [address] Urea nitrogen [Mass/Vol] 19 mg/dL High 7-18 [facility] Comment on above: Order Comment: Order Date: 03/20/24 Order Info: 785-08 - CMP Order Info: 2092-10 - CHOL Order Info: 2085-04 - HDL Order Info: 3015-10 - TSH Performed By: #### L 500.4050, L502.0250, L501.9520, L501.6400, L501.4900, L100.0100 #### [facility] [address] [place], [address] High Density Lipoproteinon 0 03-20-2024 Cholesterol in HDL [Mass/Vol] 52 mg/dL Normal [facility] Comment on above: Order Comment: Order Date: 03/20/24 Order Info: 785-08 - CMP Order Info: 2092-10 - CHOL Order Info: 2085-04 - HDL Order Info: 6-3 - TSH Result Comment: The drugs N-Acetylcysteine and Metamizole may falsely depress this assay. Reference Range HDL <40 mg/dL Low HDL Cholesterol HDL >or= 60 mg/dL High HDL Cholesterol Performed By: #### L 500.4050, L502.0250, L501.9520, L501.6400, L501.4900, L100.0100 #### [facility] [address] [place], [address] Microalb:Creat Ratio,Random URon 03-20-2024 Creatinine [Mass/Vol] 43.30 mg/dL Normal NO RANGE EST. [facility] Comment on above: Order Comment: Order Date: 03/20/24 Order Info: [id number] - MIACRE Performed By: #### L 500.4050, L502.0250, L501.9520, L501.6400, L501.4900, L100.0100 #### [facility] [address] [place], [address] MALB:CRE 13.9 mg/g CRE Normal <30 mg/g CRE [facility] Comment on above: Order Comment: Order Date: 03/20/24 Order Info: [id number] - MIACRE Performed By: #### L 500.4050, L502.0250, L501.9520, L501.6400, L501.4900, L100.0100 #### [facility] [address] [place], [address] MICROALBUMIN,UR 6.0 mg/L Normal NO RANGE EST. [facility] Comment on above: Order Comment: Order Date: 03/20/24 Order Info: 0779- - MIACRE Performed By: #### L 500.4050, L502.0250, L501.9520, L501.6400, L501.4900, L100.0100 #### [facility] [address] [place], [address] Thyroid Stim Hormone (TSH)on 03-20-2024 TSH 1.53 uIU/mL Normal 0.358-3.74 [facility] Comment on above: Order Comment: Order Date: 03/20/24 Order Info: [id number] - CMP Order Info: 2092-10 - CHOL Order Info: 2085-04 - HDL Order Info: 3 - TSH Performed By: #### L 500.4050, L502.0250, L501.9520, L501.6400, L501.4900, L100.0100 #### [facility] [address] [place], [address] Comprehensive metabolic 2000 panelon 03-09-2023 Albumin [Mass/Vol] 4.5 g/dL Normal 3.9-4.9 [facility] Comment on above: Order Comment: Speci men Type: BLOOD SPECIMEN Ordering Facility: [facility] Address: [address] [address] Performed By: #### 2 4323-8, 53871-9 #### [facility] CLIA [id number] [address] [place] [address] [place] ALP [Catalytic activity/Vol] 48 U/L Normal 34-123 [facility] Comment on above: Order Comment: Speci men Type: BLOOD SPECIMEN Ordering Facility: [facility] Address: [address] Performed By: #### 2 4323-8, 63274-8 #### [facility] CLIA [id number] [address] [place] [address] [place] ALT [Catalytic activity/Vol] 25 U/L Normal 7-38 [facility] Comment on above: Order Comment: Speci men Type: BLOOD SPECIMEN Ordering Facility: [facility] Address: [address] [address] Performed By: #### 2 4323-8, 72778-6 #### [facility] CLIA [id number] [address] [place] [address] [place] Anion gap [Moles/Vol] 13 mmol/L Normal 9-18 [facility] Comment on above: Order Comment: Speci men Type: BLOOD SPECIMEN Ordering Facility: [facility] Address: [address] [place] [address] Performed By: #### 2 4323-8, 96374-8 #### [facility] CLIA [id number] [address] [place] [address] [place] AST [Catalytic activity/Vol] 26 U/L Normal 13-35 [facility] Comment on above: Order Comment: Speci men Type: BLOOD SPECIMEN Ordering Facility: [facility] Address: [address] [place] [address] Performed By: #### 2 4323-8, 17950-9 #### [facility] CLIA [id number] [address] [place] [address] [place] Bilirubin [Mass/Vol] 0.4 mg/dL Normal 0.2-1.3 [facility] Comment on above: Order Comment: Speci men Type: BLOOD SPECIMEN Ordering Facility: [facility] Address: [address] [place] [address] Performed By: #### 2 4323-8, 85964-0 #### [facility] CLIA [id number] [address] [place] [address] [place] Calcium [Mass/Vol] 10.0 mg/dL Normal 8.5-10.2 [facility] Comment on above: Order Comment: Speci men Type: BLOOD SPECIMEN Ordering Facility: [facility] Address: [address] [place], [place] [address] Performed By: #### 2 4323-8, 97490-1 #### [facility] CLIA [id number] [address] [place] [address] [place] Chloride [Moles/Vol] 101 mmol/L Normal 97-105 [facility] Comment on above: Order Comment: Speci men Type: BLOOD SPECIMEN Ordering Facility: [facility] Address: [address] [address] Performed By: #### 2 4323-8, 12912-9 #### [facility] CLIA [id number] [address] [place] [address] [place] CO2 [Moles/Vol] 26 mmol/L Normal 22-30 [facility] Comment on above: Order Comment: Speci men Type: BLOOD SPECIMEN Ordering Facility: [facility] Address: [address] [address] Performed By: #### 2 4323-8, 02342-6 #### [facility] CLIA [id number] [facility] [place] [address] [place] Creatinine [Mass/Vol] 1.03 mg/dL High 0.58-0.96 [facility] Comment on above: Order Comment: Speci men Type: BLOOD SPECIMEN Ordering Facility: [facility] Address: [address] [place] [address] Performed By: #### 2 4323-8, 75634-9 #### [facility] CLIA [id number] [facility] [place] [address] [place] ESTIMATED GLOMERULAR FILTRATION RATE 64 mL/min/1.73m??? Normal >=60 [facility] Comment on above: Order Comment: Speci men Type: BLOOD SPECIMEN Ordering Facility: [facility] Address: [address] [place] [address] Result Comment: Bev mated Glomerular Filtration Rate (eGFR) is calculated using the 2020 CKD-EPI creatinine equation. This equation utilizes serum creatinine, sex, and age as parameters. The creatinine assay has traceable calibration to isotope dilution-mass spectrometry. Refer to KDIGO guidelines for clinical interpretation. In patients with unstable renal function, e.g. those with acute kidney injury, the eGFR may not accurately reflect actual GFR. Performed By: #### 2 4323-8, 95229-9 #### [facility] CLIA [id number] [address] [place] [address] [place] Glucose [Mass/Vol] 85 mg/dL Normal 74-99 [facility] Comment on above: Order Comment: Santos men Type: BLOOD SPECIMEN Ordering Facility: [facility] Address: [address] [place] [address] Result Comment: The [place] Diabetes Association (ADA) provides guidance for cutoff values for fasting glucose and random glucose. The ADA defines fasting as no caloric intake for at least 8 hours. Fasting plasma glucose results between 100 to 125 mg/dL indicate increased risk for diabetes (prediabetes). Fasting plasma glucose results greater than or equal to 126 mg/dL meet the criteria for diagnosis of diabetes. In the absence of unequivocal hyperglycemia, results should be confirmed by repeat testing. In a patient with classic symptoms of hyperglycemia or hyperglycemic crisis, random plasma glucose results greater than or equal to 200 mg/dL meet the criteria for diagnosis of diabetes. Reference: Standards of Medical Care in Diabetes 2016, [place] Diabetes Association. Diabetes Care. 2016.39(Suppl 1). Performed By: #### 2 4323-8, 61692-3 #### [facility] CLIA [id number] [address] [place] [address] [place] Potassium [Moles/Vol] 4.1 mmol/L Normal 3.7-5.1 [facility] Comment on above: Order Comment: Shellyi men Type: BLOOD SPECIMEN Ordering Facility: [facility] Address: [address] [address] Performed By: #### 2 4323-8, 49258-1 #### [facility] CLIA [id number] [facility] [place] [address] [place] Protein [Mass/Vol] 7.3 g/dL Normal 6.3-8.0 [facility] Comment on above: Order Comment: Shellyi men Type: BLOOD SPECIMEN Ordering Facility: [facility] Address: [address] [place] [address] Performed By: #### 2 4323-8, 55155-9 #### [facility] CLIA [id number] [address] [place] [address] [place] Sodium [Moles/Vol] 140 mmol/L Normal 136-144 [facility] Comment on above: Order Comment: Speci men Type: BLOOD SPECIMEN Ordering Facility: [facility] Address: [address] [place] [address] Performed By: #### 2 4323-8, 70104-5 #### [facility] CLIA [id number] [address] [place] [address] [place] Urea nitrogen [Mass/Vol] 15 mg/dL Normal 7-21 [facility] Comment on above: Order Comment: Speci men Type: BLOOD SPECIMEN Ordering Facility: [facility] Address: [address] [place] [address] Performed By: #### 2 4323-8, 44103-8 #### [facility] CLIA [id number] [address] [place] [address] [place] NT-proBNP [facility] 03-09 Natriuretic peptide.B prohormone N-Terminal [Mass/Vol] <36 Normal <125 [facility] Comment on above: Order Comment: Speci men Type: BLOOD SPECIMEN Ordering Facility: [facility] Address: [address] [place] [address] Performed By: #### 2 4323-8, 83998-2 #### [facility] CLIA [id number] [address] [place] [address] [place] ECHOon 01-29-2023 Echocardiography Echocardiography Report: Transthoracic Echo [facility] J1-5 Date of service: 01/29/2023 3:28:55 PM CONTROL MANAGER Ordering physician: CHADWICK TO Indication: Family history of cardiomyopathy Technologist: Marisa Ivan Interpreting physician: An Hanson MD PATIENT: Name: RADHA ALVAREZ : 1970 Age: 52 years Gender: F History of Monoallelic mutation of MYH7 gene. Primary rhythm: sinus. Height: 162.60 cm BSA: 2.02 m Weight: 90.58 kg BMI: 34.3 kg/m Heart rate 66 bpm Blood pressure 120/78 mmHg Color Doppler was utilized to interrogate the cardiac valves assessed and spectral Doppler was utilized to determine the flow velocities and pressure gradients reported in this exam. Myocardial strain analysis was performed in this exam to aid in the assessment of cardiac function. MEASUREMENTS: Value Indexed Normal Max aortic dimension 3.5 cm Ao < 3.8 Left atrial volume 43 ml (biplane A-L) 21 ml/m Cathy <= 34 LV ID (diastole) 4.5 cm (2D) 2.22 cm/m LV ID (systole) 2.4 cm (2D) 1.19 cm/m IVS, leaflet tips 1.3 cm (2D) Posterior wall thickness 0.9 cm (2D) Left ventricular mass 175 g (2D) 87 g/m Global peak long strain -20.1 % LV stroke volume 66 ml (2D biplane) LV end diastolic volume 106 ml (2D biplane) 52.5 ml/m 29<=EDVi<62 LV end systolic volume 40 ml (2D biplane) 19.6 ml/m Ejection Fraction 63 % (2D biplane) EF > 54 FINDINGS: LEFT VENTRICLE The left ventricle is normal in size. There is upper septal left ventricular hypertrophy. Left ventricular systolic function is normal. Global LV myocardial strain is normal. Grade I left ventricular diastolic dysfunction. Mitral annular lateral E/e': 9.8. Mitral annular septal E/e': 10.9. Wall Motion: All scored segments are normal. RIGHT VENTRICLE The right ventricle is normal in size. Right ventricular systolic function is normal. RV systolic tissue Doppler velocity is 18.9 cm/s. Tricuspid annular displacement is 2.1 cm. Estimated right ventricular systolic pressure is 24 mmHg consistent with normal pulmonary artery pressures. Estimated right atrial pressure is 3 mmHg based on IVC assessment. LEFT ATRIUM The left atrial cavity is normal in size. Pulmonary Veins: The pulmonary venous pattern showed normal systolic flow. RIGHT ATRIUM The right atrial cavity is normal in size. Inferior Vena Cava: The inferior vena cava appears normal measuring 1.8 cm. The vessel decreases greater than 50 percent with inspiration. MITRAL VALVE There is trace mitral valve regurgitation. There is mild thickening. The pressure half time is 51 msec. The peak mitral E/A ratio is 1.42. The average mitral E/e' ratio is 10.4. The mitral flow deceleration time is 177 msec. TRICUSPID VALVE There is trace (trace - 1+) tricuspid valve regurgitation. There is no thickening. The hepatic venous pattern showed normal systolic flow. AORTIC VALVE There is no aortic valve regurgitation. Tricuspid aortic valve. There is mild thickening. PULMONIC VALVE The pulmonic valve was not seen or not interrogated. There is trace pulmonic valve regurgitation. AORTA The visualized aorta is normal in size. Measurements - Sinus: 3.4 cm. Mid ascending aorta 3.5 cm. CONCLUSIONS: - Exam indication: Family history of cardiomyopathy - The left ventricle is normal in size. There is upper septal left ventricular hypertrophy. Left ventricular systolic function is normal. EF = 63 5% (2D biplane) Global LV myocardial strain is normal. - The right ventricle is normal in size. Right ventricular systolic function is normal. - There are no significant valvular abnormalities. - The patient has not had a prior CC echocardiographic exam for comparison. * * * Final * * * [facility] [employer] [facility] : [id number] Normal [facility] CNOVon 12-07-2022 CNOV Office Visit (OSMAN [facility] CHAD) RADHA ALVAREZ ([id number]) 1970 F Date Time Provider Department 12/07/22 2:45 PM CHADWICK TO [facility] During your visit today, we recorded the following information about you: Pulse Blood pressure Weight Height 65/minute 118/81 90.6 kg 1.626 m W Raza To MD 12/07/2022 5:08 PM Signed [facility] SECTION OF HEART FAILURE and CARDIAC TRANSPLANT MEDICINE OUTPATIENT VISIT DATE December 07, 2022 OUTPATIENT VISIT TYPE Consultation PRIMARY CARE PHYSICIAN: Aaron Geiger ([facility]) [address] [place] [address] CHIEF COMPLAINT: Evaluation for genetic cardiomyopathy NURSING INTAKE (Patient?s concerns and/or recent hospitalizations/ER visits): Radha Alvarez is a 52 year old female from [place], [place] here for cardiac evaluation in relation to family history of cardiomyopathy and monoallelic mutation of MYH7 gene. HF Nursing Assessment: Interim Hospitalizations and/or ER visits: no Chest Pain: no Skipping or irregular heartbeats: occasionally Shortness of breath at rest: no Shortness of breath with activity: sometimes Cough: no Waking up in the middle of the night gasping for air: no Lightheadedness or dizziness: here and there Feeling like you are going to pass out: no Actually passing out: yes, years ago while walking on the treadmill Poor energy level: yes Unintentional weight gain: no Unintentional weight loss: no Swelling in your legs,feet, abdomen: no Filling up quickly when you eat: no HISTORY OF PRESENT ILLNESS: Mrs. Alvarez is a 52 year old lady here for established care after son was found to have MYH7 variant of dilated cardiomyopathy. Father has h/o cardiomyopathy and older sister at age 4242 year old. Son was a long-distance runner and felt lightheadedness (but without palpitations or chest pain or shortness of breath) and found to have dilated cardiomyopathy (MRI showed EDV = 240 cc). Her son was diagnosed with cardiomyopathy and underwent genetic testing in 2020, a variant in MYH7 was identified [MYH7 c.5029C>T (p.[id number])] and GAA c.271G>A (p.Nfv79Efz). In 2021, interpretation was upgraded to likely pathogenic. He does not have any major Sx other than longstanding lightheadedness. Does complain of shortness of breath occasionally with exercise, but denies orthopnea, PND, dizziness, palpitations, syncope, chest pain, edema. She has previously had a negative stress echocardiogram in 2019 (results unavailable). She underwent an echo stress test 2.5 years ago and was reportedly normal. Denies orthopnea, PND, dizziness, palpitations, syncope, chest pain, edema. Does feel lifelong low exercise stamina. PAST MEDICAL HISTORY Diagnosis Date Depression Fracture of cervical vertebra, C2 (HCC) 12/2009 Hyperlipidemia Hypertension Hypothyroidism Irregular menses Obesity PAST SURGICAL HISTORY Procedure Laterality Date ANKLE SURGERY HX Left DELIVERY ONLY CHOLECYSTECTOMY COLONOSCOPY 08/2018 CYST/MOLE REMOVAL Wrist LEG SURGERY HX Right bunion surgery TONSILLECTOMY AND ADENOIDECTOMY HX SOCIAL HISTORY Social History Tobacco Use Smoking status: Never Smokeless tobacco: Never Substance Use Topics Alcohol use: Yes Comment: Socially Drug use: Never FAMILY HISTORY Problem Relation Age of Onset Hypertension Mother Heart Attack Mother PCI, CABGx3 (47), CABGx2 (66), Valve replaced (72) Cancer Mother Arrythmias Mother other (Basal Cell Cancer) Mother has 3 sisters with 3 different cancers other (atrial fibrill) Mother Hyperlipidemia Mother Obstructive Sleep Apnea Mother COPD Mother Hyperlipidemia Father Hypertension Father Diabetes Father Ischemic Heart Disease Father Heart Attack Father 63 s/p PCI Diabetes Sister Sudden Cardiac Sister 43 Hyperlipidemia Sister Hypertension Sister Heart Attack Sister Breast Cancer Maternal Aunt 60 other (Adrenal Cancer) Maternal Aunt 60 Heart Son Colon Cancer Other 60 ALLERGIES: ALLERGIES Allergen Reactions Adhesive Rash CURRENT MEDICATIONS: vitamin B complex (B-COMPLEX ORAL) Take 1 tablet by mouth once daily. amLODIPine (NORVASC) 5 mg tablet Take 5 mg by mouth once daily. cloNIDine HCl (CATAPRES) 0.1 mg tablet Take 0.1 mg by mouth once daily. losartan (COZAAR) 50 mg tablet Take 50 mg by mouth once daily. spironolactone (ALDACTONE) 25 mg tablet Take 25 mg by mouth once daily. buPROPion XL (WELLBUTRIN XL) 150 mg 24 hr tablet Take 150 mg by mouth once daily. VITAMIN D 1,000 unit (25 mcg) tab tablet Take 1,000 Units by mouth once daily. rosuvastatin (CRESTOR) 5 mg tablet Take 5 mg by mouth every other day. levothyroxine 88 mcg tablet Take 1 tablet by mouth once daily. metFORMIN ER 500 mg 24 hr tablet Take 4 tablets (more content not included)... Normal [facility] ECG COMPLETEon 12-07-2022 ECG COMPLETE Ventricular Rate : 6 1 BPM Atrial Rate : 61 BPM P-R Interval : 176 ms QRS Duration : 98 ms Q-T Interval : 430 ms QTC Calculation(Bazett) : 432 ms Calculated P [place] : 39 degrees Calculated R [place] : 41 degrees Calculated T [place] : 57 degrees NORMAL SINUS RHYTHM NORMAL ECG Confirmed by NATALIA HANSEN MD ([id number]) on 12/09/2022 10:38:13 AM NAME : RADHA ALVAREZ PID : [id number] : 1970 Gender : Female Race : ORD : [id number] Procedure Date : Dec 07 2022 16:38:05 Edit Date : Dec 09 2022 10:38:15 Diagnosis: NORMAL SINUS RHYTHM NORMAL ECG Confirmed by NATALIA HANSEN MD ([id number]) on 12/09/2022 10:38:13 AM Test Reason : Location : 314 : J14 Overread By : NATALIA HANSEN MD Edited By : NATALIA HANSEN MD Referred By : CHADWICK TO Acquired by : YARELY POLO [facility] 10-16-2022 [facility] Telephone ([facility]) RADHA ALVAREZ ([id number]) 1970 F Date Time Provider Department 10/16/22 LEIGH KNAPP [facility] During your visit today, we recorded the following information about you: MARGARITO Pereyra 10/16/2022 1:26 PM Signed I tried to reach Radha Alvarez by phone with results. Her mailbox was full. MARGARITO Pereyra 10/23/2022 1:21 PM Signed tried by phone again. sent [employer] message. Allergies As of Date: 10/16/2022 Noted Allergy Reaction ADHESIVE 09/02/2018 16 - Unknown Date Reviewed: 05/27/2022 Reviewed by: Beti Miles MD - Fully Assessed Reason for Visit: Results [95] Primary Visit Diagnosis:Family history of cardiomyopathy [Z82.49] Other Visit Diagnosis:Monoallelic mutation of MYH7 gene [Z15.89] Order(s):CONSULT TO CARDIOLOGY [9004] Order #: [id number]: 1 FUTURE Prescriptions as of 10/23/2022 - vitamin B complex (B-COMPLEX ORAL) Take by mouth. - amLODIPine (NORVASC) 5 mg tablet - cloNIDine HCl (CATAPRES) 0.1 mg tablet - losartan (COZAAR) 50 mg tablet - spironolactone (ALDACTONE) 25 mg tablet - buPROPion XL (WELLBUTRIN XL) 150 mg 24 hr tablet - VITAMIN D 1,000 unit (25 mcg) tab tablet Take 1,000 Units by mouth once daily. - rosuvastatin (CRESTOR) 5 mg tablet - levothyroxine 88 mcg tablet Take 1 tablet by mouth once daily. - metFORMIN ER 500 mg 24 hr tablet Take 4 tablets by mouth once daily. Problem List As Of Date 10/16/2022 Noted Resolved Hyperlipidemia LDL goal < 100 [E78.5] 08/05/2011 PCOS (polycystic ovarian syndrome) [E28.2] 08/05/2011 Hypothyroidism [E03.9] 09/23/2011 Hypertension [I10] 12/02/2011 Encounter Status:Closed by LEIGH KNAPP on 10/23/22 Normal [facility] SEND OUT TST 2022 Test 1 Familial MYH7 varian t testing [facility] Test Results 1 View results in Scanned Documents link when available. [facility] SEND OUT TST 2022 REFERRAL LAB 1 [facility] Normal [facility] Comment on above: Order Comment: Speci men Type: BLOOD SPECIMEN Ordering Facility: [facility] Address: [address] [place] [address] Performed By: #### M ISC1 #### NON-INTERFACED REF LABS CLIA SEE SCANNED RESULTS TEST 1 Familial MYH7 varian t testing Normal [facility] Comment on above: Order Comment: Speci men Type: BLOOD SPECIMEN Ordering Facility: [facility] Address: [address] [place] [address] Performed By: #### M ISC1 #### NON-INTERFACED REF LABS CLIA SEE SCANNED RESULTS TEST RESULTS 1 View results in Scanned Documents link when available. Normal [facility] Comment on above: Order Comment: Speci men Type: BLOOD SPECIMEN Ordering Facility: [facility] Address: [place] [address] Performed By: #### M ISC1 #### NON-INTERFACED REF LABS CLIA SEE SCANNED RESULTS No Panel Informationon 05-15 Miscellaneous Test See comment [facility] Work Phone: Comment on above: Sent directly to [facility] facility per ordering physician. Vital Signs Date Time Vital Sign Value Performing Clinician Faci lity 06-14-2024 14:06-0400 Body height 162.6 cm Beti Miles MD Work Phone: [facility] 06-14-2024 14:06-0400 Body mass index (BMI) [Ratio] 34.16 kg/m2 Beti Miles MD Work Phone: [facility] 06-14-2024 14:06-0400 Body weight 90.27 kg Beti Miles MD Work Phone: [facility] 06-14-2024 14:06-0400 Diastolic blood pressure 80 mm[Hg] Beti Miles MD Work Phone: [facility] 06-14-2024 14:06-0400 Systolic blood pressure 118 mm[Hg] Beti Miles MD Work Phone: [facility] 04-21-2023 12:21-0400 Body height 162.[address] Aaron Geiger Work Phone: [facility] 04-21-2023 12:21-0400 Body mass index (BMI) [Ratio] 34.3 kg/m2 Dr. Aaron Geiger Work Phone: [facility] 04-21-2023 12:21-0400 Body temperature 98.7 [degF] Dr. Aaron Geiger Work Phone: [facility] 04-21-2023 12:21-0400 Body weight 90.[address] Aaron Geiger Work Phone: [facility] 04-21-2023 12:21-0400 Diastolic blood pressure 66 mm[Hg] Dr. Aaron Geiger Work Phone: [facility] 04-21-2023 12:21-0400 Heart rate 76 /min Dr. Aaron Geiger Work Phone: [facility] 04-21-2023 12:21-0400 Respiratory rate 16 /min Dr. Aaron Geiger Work Phone: [facility] 04-21-2023 12:21-0400 SaO2% (BldA) [Mass fraction] 96 % Dr. Aaron Geiger Work Phone: [facility] 04-21-2023 12:21-0400 Systolic blood pressure 117 mm[Hg] Dr. Aaron Geiger Work Phone: [facility] 12-07-2022 15:24-0400 Body height 162.6 cm Chadwick To MD Work Phone: [facility] 12-07-2022 15:24-0400 Body weight 90.58 kg Chadwick To MD Work Phone: [place] [facility] 12-07-2022 15:24-0400 Diastolic blood pressure 81 mm[Hg] Chadwick To MD Work Phone: [facility] 12-07-2022 15:24-0400 Heart rate 65 /min Chadwick To MD Work Phone: [facility] 12-07-2022 15:24-0400 SaO2% (BldA) [Mass fraction] 96 % Chadwick To MD Work Phone: [facility] 12-07-2022 15:24-0400 Systolic blood pressure 118 mm[Hg] Chadwick To MD Work Phone: [facility] 05-27-2022 13:19-0400 Body height 162.6 cm Beti Miles MD Work Phone: [facility] 05-27-2022 13:19-0400 Body weight 88.45 kg Beti Miles MD Work Phone: [facility] 05-27-2022 13:19-0400 Diastolic blood pressure 80 mm[Hg] Beti Miles MD Work Phone: [facility] 05-27-2022 13:19-0400 Systolic blood pressure 128 mm[Hg] Beti Miles MD Work Phone: [facility] Encounters Encounter Date Encounter Type Care Provider Facility Start: 08-03-2024 End: 08-03-2024 ambulatory Beti Miles Facility:[facility] Start: 06-14-2024 End: 06-14-2024 Female genitalia finding Beti Miles MD Work Phone: [facility] Start: 06-14-2024 End: 06-14-2024 Patient encounter procedure Beti Miles MD [facility] Comment on above: Gynecologic exam nor mal (Primary Dx); Screening for depression; Cervical cancer screening; Breast cancer screening by mammogram; Screening for osteoporosis; Menopause Start: 03-23-2024 End: 03-23-2024 Emergency department patient visit Aaron Geiger Facility:[facility] Start: 03-20-2024 End: 03-20-2024 ambulatory Aaron Geiger Facility:[facility] Start: 06-29-2023 End: 06-29-[address] Aaron Geiger Work Phone: [facility] Work Phone: Start: 06-29-2023 End: 06-29-[address] Aaron Geiger Work Phone: [facility] Work Phone: Start: 06-07-2023 Telephone encounter Beti iMles MD Work Phone: [employer] Comment on above: Results Start: 04-21-2023 End: 04-21-[address] Aaron Geiger Work Phone: [facility] Work Phone: Start: 03-09-2023 End: 03-10-2023 ambulatory AARON GEIGER Facility:[facility] Start: 02-23-2023 Orders Only Chadwick To MD Work Phone: Cardiology Comment on above: Essential hypertensi on (Primary Dx) Start: 01-29-2023 End: 01-29-2023 Orders Only Chadwick To MD Work Phone: Cardiology Comment on above: Monoallelic mutation of MYH7 gene (Primary Dx); Shortness of breath Start: 12-07-2022 End: 12-07-2022 Orders Only Chadwick To MD Work Phone: Cardiology Comment on above: Hypertension, unspec ified type (Primary Dx) Family history of ca rdiomyopathy; Monoallelic mutation of MYH7 gene Start: 10-16-2022 Telephone encounter Leigh Knapp [facility] Work Phone: [facility] Comment on above: Results Start: 09-30-2022 End: 09-30-2022 ambulatory SUJATA JENNINGS Facility:[facility] Start: 09-18-2022 End: 09-18-2022 ambulatory Leigh Rosastracyrory [facility] Work Phone: [facility] Comment on above: Family history of ca rdiomyopathy (Primary Dx) Start: 09-18-2022 End: 09-18-2022 Telemedicine consultation with patient Leigh Knapp [facility] Work Phone: [facility] Start: 07-28-2022 End: 07-28-2022 ambulatory [facility] Work Phone: Start: 07-28-2022 End: 07-28-2022 Patient encounter procedure [facility] Start: 06-26-2022 End: 06-26-2022 ambulatory [facility] Work Phone: Start: 06-26-2022 End: 06-26-2022 Patient encounter procedure [facility] Start: 05-27-2022 End: 05-27-2022 Female genitalia finding Beti Miles MD Work Phone: [employer] [facility] Start: 05-27-2022 End: 05-27-2022 Patient encounter procedure Beti Miles MD Work Phone: [facility] Comment on above: Gynecologic exam nor mal (Primary Dx); Cervical cancer screening; Breast cancer screening by mammogram; Encounter for Pap smear of cervix with HPV DNA cotesting; Screening for osteoporosis; Menopause Start: 05-15-2022 End: 05-15-2022 ambulatory [facility] Work Phone: Start: 05-15-2022 End: 05-15-2022 Patient encounter procedure [facility] Procedures Date Procedure Procedure Detail Performing Clinician Start: 06-14-2024 Adult depression scr eening assessment Beti Miles MD Work Phone: Start: 06-29-2023 Screening mammography Maxine Geiger Work Phone: Start: 06-26-2022 Screening mammograph y of bilateral breasts Start: 06-25-2021 Mammography Beti perez MD Work Phone: Start: 06-19-2020 Colonoscopy Beti perez MD Work Phone: Start: 12-06-2012 Lipid 1996 panel - S mackenzie or Plasma Beti Miles MD Work Phone: Plan of Treatment Date Care Activity Detail Author Start: 05-15-2032 Urine microalbumin profile [facility] Start: 06-02-2028 Pap Testing Pap Testing [facility] Start: 06-02-2028 Screening for malign ant neoplasm of cervix Cervical Cancer Screening [facility] Start: 05-27-2027 HPV Testing HPV Testing [facility] Start: 05-26-2026 PAP TESTING PAP TESTING [facility] Start: 03-09-2026 Diabetes Screening Diabetes Screenin g [facility] Start: 06-14-2025 Depression Screening Depression Scre ening [facility] Start: 02-26-2025 Influenza vaccination Influenza Vacc ine (#1) [facility] Comment on above: Postponed from 04/30 (Declined at this time) Start: 06-02-2024 Colorectal Cancer Screening Colorectal Cancer Screening [facility] Start: 06-02-2024 Fecal Occult Blood Fecal Occult Bloo d [facility] Start: 06-02-2024 Screening for malign ant neoplasm of colon [facility] Start: 04-30-2024 Covid-19 Vaccine ( season) Covid-19 Vaccine ( season) [facility] Start: 04-30-2023 Influenza vaccination C [facility] Start: 02-23-2023 End: 04-25-2023 Comprehensive metabolic 2000 panel - Serum or Plasma COMP METABOLIC PANEL Lab Routine Essential hypertension Expected: 02/23/2023, Expires: 04/25/2023 [facility] Work Phone: Comment on above: Expected: 02/23/2023 , Expires: 04/25/2023 Start: 02-23-2023 End: 04-25-2023 Natriuretic peptide.B prohormone N-Terminal [Mass/volume] in Serum or Plasma NT PRO BNP Lab Routine Essential hypertension Expected: 02/23/2023, Expires: 04/25/2023 [facility] Work Phone: Comment on above: Expected: 02/23/2023 , Expires: 04/25/2023 Start: 01-29-2023 End: 03-31-2023 Comprehensive metabolic 2000 panel - Serum or Plasma COMP METABOLIC PANEL Lab Routine Monoallelic mutation of MYH7 gene Shortness of breath Expected: 01/29/2023, Expires: 03/31/2023 [facility] Work Phone: Comment on above: Expected: 01/29/2023 , Expires: 03/31/2023 Start: 01-29-2023 End: 03-31-2023 Natriuretic peptide.B prohormone N-Terminal [Mass/volume] in Serum or Plasma NT PRO BNP Lab Routine Monoallelic mutation of MYH7 gene Shortness of breath Expected: 01/29/2023, Expires: 03/31/2023 [facility] Work Phone: Comment on above: Expected: 01/29/2023 , Expires: 03/31/2023 Start: 12-14-2022 End: 12-08-2023 Echocardiography ECHO Cardiology Routine Family history of cardiomyopathy Monoallelic mutation of MYH7 gene Expected: 12/14/2022 (Approximate), Expires: 12/08/2023 [facility] Work Phone: Comment on above: Expected: 12/14/2022 (Approximate), Expires: 12/08/2023 Start: 12-07-2022 End: 02-06-2023 Comprehensive metabolic 2000 panel - Serum or Plasma COMP METABOLIC PANEL Lab Routine Hypertension, unspecified type Expected: 12/07/2022, Expires: 02/06/2023 [facility] Work Phone: Comment on above: Expected: 12/07/2022 , Expires: 02/06/2023 Start: 12-07-2022 End: 02-06-2023 Natriuretic peptide.B prohormone N-Terminal [Mass/volume] in Serum or Plasma [facility] Work Phone: Comment on above: Expected: 12/07/2022 , Expires: 02/06/2023 Expected: 12/07/2022 (Approximate), Expires: 02/06/2023 Start: 08-30-2022 DEPRESSION ASSESSMENT DEPRESSION ASS ESSMENT [facility] Start: 07-28-2022 Dual energy X-ray absorptiometry Dexa Bone Density Study [facility] Work Phone: Start: 07-28-2022 DXA Bone [Mass/Area] Bone density [facility] Work Phone: Start: 06-25-2022 Mammography [facility] Start: 06-25-2022 Screening for malign ant neoplasm of breast Mammogram Screening [facility] Start: 05-26-2022 COLORECTAL CANCER SCREENING COLORECTAL CANCER SCREENING [facility] Start: 05-26-2022 FECAL OCCULT BLOOD FECAL OCCULT BLOO D [facility] Start: 05-15-2022 Procedure [facility] Work Phone: Start: 04-30-2022 Influenza vaccination INFLUENZA (#1) [facility] Start: 10-08-2021 COVID-19 VACCINE (4 - Booster for Moderna series) COVID-19 VACCINE (4 - Booster for Moderna series) [facility] Start: 10-08-2021 Covid-19 Vaccine (4 - Moderna series) Covid-19 Vaccine (4 - Moderna series) [facility] Start: 08-30-2021 DEPRESSION ASSESSMENT DEPRESSION ASS ESSMENT [facility] Start: 06-19-2021 Colonoscopy COLONOSCOPY [facility] Start: 06-19-2021 Screening for malign ant neoplasm of colon Colonoscopy [facility] Start: 06-03-2021 HPV TESTING HPV TESTING [facility] Start: 12-06-2017 Lipid 1996 panel - S mackenzie or Plasma Lipid Screening [facility] Start: 12-06-2017 Lipid panel Lipid Screening [facility] Start: 12-06-2017 LIPID SCREEN LIPID SCREEN [facility] Start: 12-07-2015 DIABETES SCREEN DIABETES SCREEN [facility] Start: 02-15-2013 COLOGUARD (FIT-DNA) COLOGUARD (FIT-D NA) [facility] Start: 02-15-[address] COLONOGRAPHY [facility] Start: 02-15-2013 Screening for malign ant neoplasm of colon [facility] Start: 02-15-2013 SIGMOIDOSCOPY SIGMOIDOSCOPY [facility] Start: 02-15-1987 Hepatitis B Vaccine (1 of 3 - + 3-dose series) Hepatitis B Vaccine (1 of 3 - + 3-dose series) [facility] Start: 02-15-1986 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 DISEASE VISIT ANNUAL PCP TEAM CHRONIC DISEASE VISIT [facility] Start: 02-15-1986 Anxiety Screening Anxiety Screening [facility] Start: 02-15-1986 BP CONTROLLED (<130/80) BP CONTROLLE D (<130/80) [facility] Start: 02-15-1986 HEPATITIS C SCREENING HEPATITIS C [facility] Start: 02-15-1986 Hepatitis C screening Hepatitis C [facility] Start: 02-15-1986 HIV SCREENING HIV SCREENING [facility] Start: 02-15-1986 HIV screening HIV Screening [facility] Start: 1970 HEPATITIS B (1 of 3 - 3-dose series) HEPATITIS B (1 of 3 - 3-dose series) [facility] Start: 1970 Hepatitis B Vaccine (1 of 3 - 3-dose series) Hepatitis B Vaccine (1 of 3 - 3-dose series) [facility] DBT Breast - bilater al screening TUYET SCREENING W KANA Radiology Routine Breast cancer screening by mammogram 1 Occurrences starting 06/14/2024 [facility] Comment on above: 1 Occurrences starti ng 06/14/2024 End: 06-26-2023 Dxa bone density study 1/> sites axial skel DXA-AXIAL SKELETON Radiology Routine Screening for osteoporosis Menopause 1 Occurrences starting 05/27/2022 until 06/26/2023 [facility] Phone: Comment on above: 1 Occurrences starti ng 05/27/2022 until 06/26/2023 End: 07-14-2025 DXA Skeletal system.axial Views for bone density DXA-AXIAL SKELETON Radiology Routine Screening for osteoporosis Menopause 1 Occurrences starting 06/14/2024 until 07/14/2025 [facility] Comment on above: 1 Occurrences starti ng 06/14/2024 until 07/14/2025 ECG COMPLETE ECG COMPLETE ECG Routine Family history of cardiomyopathy Monoallelic mutation of MYH7 gene 12/07/2022 4:38 PM EDT [facility] [employer] Work Phone: HUMAN PAPILLOMA VIRU S, MRNA HUMAN PAPILLOMA VIRUS, MRNA Lab Routine Encounter for Pap smear of cervix with HPV DNA cotesting Ordered: 05/27/2022 [employer] Phone: Comment on above: Ordered: 05/27/2022 End: 06-26-2023 TUYET SCREENING W KANA TUYET SCREENING W KANA Radiology Routine Gynecologic exam normal Breast cancer screening by mammogram 1 Occurrences starting 05/27/2022 until 06/26/2023 [facility] Phone: Comment on above: 1 Occurrences starti ng 05/27/2022 until 06/26/2023 PAP REFLEX HPV MRNA WHEN ASCUS PAP REFLEX HPV MRNA WHEN ASCUS Lab Routine Gynecologic exam normal Cervical cancer screening Ordered: 05/27/2022 [facility] Phone: Comment on above: Ordered: 05/27/2022 PAP REFLEX HPV MRNA WHEN ASCUS PAP REFLEX HPV MRNA WHEN ASCUS Lab Routine Gynecologic exam normal Ordered: 06/14/2024 [facility] Phone: Comment on above: Ordered: 06/14/2024 Procedure [facility] Work Phone: [facility] Immunizations Immunization Date Immunization Notes Care Provider Erica cronin 05-15-2022 tetanus toxoid, redu francesca diphtheria toxoid, and acellular pertussis vaccine, adsorbed Beti Miles MD Work Phone: [facility] 07-28-2021 influenza, injectabl e, quadrivalent, preservative free Beti Miles MD Work Phone: [facility] 07-28-2021 influenza virus vacc ine, unspecified formulation Beti Miles MD Work Phone: [facility] 11-05-2020 zoster vaccine recombinant Beti Miles MD Work Phone: [facility] 07-12-2020 zoster vaccine recombinant Beti Miles MD Work Phone: [facility] 05-20-2020 influenza, injectabl e, quadrivalent, contains preservative Beti Miles MD Work Phone: [facility] Work Phone: 06-26-2019 influenza, seasonal, injectable Beti Miles MD Work Phone: [facility] Work Phone: 06-13-2018 influenza, seasonal, injectable Beti Miles MD Work Phone: [facility] 06-13-2018 pneumococcal polysaccharide vaccine, 23 valent Beti Miles MD Work Phone: [facility] 05-22-2015 influenza, seasonal, injectable Beti Miles MD Work Phone: [facility] 07-18-2012 influenza, seasonal, injectable Beti Miles MD Work Phone: [facility] 05-03-2012 influenza, seasonal, injectable Beti Miles MD Work Phone: [facility] 04-10-2011 tetanus toxoid, redu francesca diphtheria toxoid, and acellular pertussis vaccine, adsorbed Beti Miles MD Work Phone: [facility] 09-05-2010 influenza, seasonal, injectable Beti Miles MD Work Phone: [facility] 09-05-2010 pneumococcal polysaccharide vaccine, 23 valent Btei Miles MD Work Phone: [facility] 04-30-2009 influenza, seasonal, injectable Beti Miles MD Work Phone: [facility] 05-30-2008 influenza, seasonal, injectable Beti Miles MD Work Phone: [facility] 04-17-2002 measles, mumps and rubella virus vaccine Beti Miles MD Work Phone: [facility] Work Phone: 03-30-2002 measles, mumps and rubella virus vaccine Beti Miles MD Work Phone: [facility] Work Phone: 01-28-2001 TD(adult) unspecifie d formulation Beti Miles MD Work Phone: [facility] 12-03-2000 hepatitis A vaccine, unspecified formulation Beti Miles MD Work Phone: [facility] Payers Date Payer Category Payer Self-pay [id number] 2010 Unknown [id number] 2010 Unknown ANTHEM BLUE CARD PPO OOS [id number] 2010-Present [phone] [address] [place] [address] PPO [id number] Unknown [id number] Unknown [id number] Unknown [id number] Social History Date Type Detail Facility Start: 09-02-2018 End: 04-21-2023 Tobacco smoking status NHIS Unknown if ever smoked [facility] Start: 1970 Sex Assigned At Female W [facility] Start: 05-27-2022 Tobacco smoking stat us NHIS Never smoked tobacco [facility] Start: 05-27-2022 Tobacco use and exposure Smokeless tobacco non-user [facility] Start: 05-27-2022 End: 10-16-2022 Alcohol intake Current non-drinker of alcohol (finding) [facility] Start: 1970 Sex Assigned At Not on file [facility] Start: 05-17-2022 End: 05-27-2022 Exposure to SARS-CoV-2 (event) Not sure [facility] Start: 12-07-2022 End: 06-14-2024 Alcohol intake Current drinker of alcohol (finding) [facility] Start: 12-07-2022 Alcohol Comment Socially [facility] Start: 01-29-2023 End: 06-02-2023 History of Social function [facility] Work Phone: Start: 01-29-2023 End: 06-02-2023 Tobacco use panel [facility] Work Phone: Adult Depression Screening Assessment 0 [facility] Work Phone: Clinical Notes 05-27-2022 to 06-14-2024 Beti Miles MD - 06/14/2024 2:05 PM EDTTelephone Encounter - Pam Brennan - 06/07/2023 12:54 PM EDTTelephone Encounter - Pam Brennan - 06/07/2023 12:54 PM EDT Note Date & Type Note Facility 06-14-2024 History of Present illness Narrative CHANEL Alvarez is a 54 year old woman who presents for her annual exam: Last pap 06/21, Mammo 2020, Bone Density 07/21, Patient's last menstrual period was 05/03/2022.. She lost her mom 10/2023 to liver cancer. Also lost her mother in law. Medications, Allergies, Surgeries, Family History updated and smoking status updated. Discussed health maintenance, including regular aerobic exercise, low fat diet, and periodic exams. HISTORIES FAMILY HISTORY Problem Relation Age of Onset Hypertension Mother Heart Attack Mother PCI, CABGx3 (47), CABGx2 (66), Valve replaced (72) Cancer Mother Arrythmias Mother other (Basal Cell Cancer) Mother has 3 sisters with 3 different cancers other (atrial fibrill) Mother Hyperlipidemia Mother Obstructive Sleep Apnea Mother COPD Mother Hyperlipidemia Father Hypertension Father Diabetes Father Ischemic Heart Disease Father Heart Attack Father 63 s/p PCI Diabetes Sister Sudden Cardiac Sister 43 Hyperlipidemia Sister Hypertension Sister Heart Attack Sister Breast Cancer Maternal Aunt 60 other (Adrenal Cancer) Maternal Aunt 60 Heart Son Colon Cancer Other 60 PAST MEDICAL HISTORY Diagnosis Date Depression Fracture of cervical vertebra, C2 (HCC) 12/2009 Hyperlipidemia Hypertension Hypothyroidism Irregular menses MYH7-related cardiomyopathy, 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 amLODIPine (NORVASC) 5 mg tablet Take 5 mg by mouth once daily. cloNIDine HCl (CATAPRES) 0.1 mg tablet Take 0.1 mg by mouth once daily. losartan (COZAAR) 50 mg tablet Take 50 mg by mouth once daily. spironolactone (ALDACTONE) 25 mg tablet Take 25 mg by mouth once daily. buPROPion XL (WELLBUTRIN XL) 150 mg 24 hr tablet Take 150 mg by mouth once daily. VITAMIN D 1,000 unit (25 mcg) tab tablet Take 1,000 Units by mouth once daily. rosuvastatin (CRESTOR) 5 mg tablet Take 5 mg by mouth every other day. levothyroxine 88 mcg tablet Take 1 tablet by mouth once daily. metFORMIN ER 500 mg 24 hr tablet Take 4 tablets by mouth once daily. No current facility-administered medications for this visit. REVIEW OF SYSTEMS GENERAL: No weight loss, malaise or fevers HEENT: No changes in hearing or vision NECK: Negative for lumps, goiter, pain and significant neck swelling RESPIRATORY: Negative for cough, wheezing, dyspnea or shortness of breath CARDIOVASCULAR: Negative for chest pain or palpitations GI: Negative for abdominal discomfort, blood in stools or black stools, change in bowel habit, diarrhea, nausea, vomiting, constipation : No history of dysuria, frequency or incontinence WIDE AREA NETWORK ENGINEER: Negative for abnormal vaginal bleeding, abnormal vaginal discharge or Breast symptoms ENDOCRINE: Negative for cold or heat intolerance, polyuria, polydipsia and goiter NEURO: No history of headaches, syncope, paralysis, seizures or tremors OBJECTIVE BP 118/80 Ht 5' 4 (1.63m) Wt 199 lb (90.3kg) LMP 05/03/2022 BMI 34.14 kg/(m^2). HEENT: Within normal limits NECK: Supple, no thyromegaly BREASTS: No masses, no nipple discharge HEART: Regular rate and rhythm without murmur, rub, or gallop LUNGS: Clear bilaterally to auscultation ABDOMEN: No masses, non tender, no hernias, no hepatosplenomegaly PELVIC: EGBUS: No lesions, normal appearance VAGINA: No discharge, no blood, no lesions CERVIX: No lesions, non tender UTERUS: Anteverted, normal size, non tender ADNEXA: Non tender, no masses RECTOVAGINAL: Not examined EXTREMITIES: No edema, no calf tenderness NEUROLOGICAL: Grossly intact ASSESSMENT/PLAN: 1. Gynecologic exam normal - ICD9: V72.31, ICD10: Z01.419 (primary diagnosis) - Completed pelvic and breast exam - Encouraged monthly BSE - Follow up for annual exam in one year. - PAP REFLEX HPV MRNA WHEN ASCUS 2. Screening for depression - ICD9: V79.0, ICD10: Z13.31 - DEPRESSION SCREENING 3. Cervical cancer screening - ICD9: V76.2, ICD10: Z12.4 4. Breast cancer screening by mammogram - ICD9: V76.12, ICD10: Z12.31 - TUYET SCREENING W KANA 5. Screening for osteoporosis - ICD9: V82.81, ICD10: Z13.820 - DXA-AXIAL SKELETON 6. Menopause - ICD9: 627.2, ICD10: Z78.0 - DXA-AXIAL SKELETON MD Pam Andrea documented in this encounter [facility] 06-07-2023 Miscellaneous Notes Left message for patient to call back. Pam Brennan ----- Message from Beti Miles MD sent at 06/07/2023 11:09 AM EDT ----- Urine culture is negative. Beti Miles MD documented in this encounter [facility] 12-07-2022 Note HNO ID: [id number] Author: Chadwick To MD Service: ? Author Type: Physician Type: Progress Notes Filed: 12/07/2022 5:08 PM Note Text: Heart [facility] [place] [facility] SECTION OF HEART FAILURE and CARDIAC TRANSPLANT MEDICINE OUTPATIENT VISIT DATE December 07, 2022 OUTPATIENT VISIT TYPE Consultation PRIMARY CARE PHYSICIAN: Aaron Geiger (Victor Manuel) [address] [place] [id number] CHIEF COMPLAINT: Evaluation for genetic cardiomyopathy NURSING INTAKE (Patient?s concerns and/or recent hospitalizations/ER visits): Radha Alvarez is a 52 year old female from [place], [place] here for cardiac evaluation in relation to family history of cardiomyopathy and monoallelic mutation of MYH7 gene. HF Nursing Assessment: Interim Hospitalizations and/or ER visits: no Chest Pain: no Skipping or irregular heartbeats: occasionally Shortness of breath at rest: no Shortness of breath with activity: sometimes Cough: no Waking up in the middle of the night gasping for air: no Lightheadedness or dizziness: here and there Feeling like you are going to pass out: no Actually passing out: yes, years ago while walking on the treadmill Poor energy level: yes Unintentional weight gain: no Unintentional weight loss: no Swelling in your legs,feet, abdomen: no Filling up quickly when you eat: no HISTORY OF PRESENT ILLNESS: Mrs. Alvarez is a 52 year old lady here for established care after son was found to have MYH7 variant of dilated cardiomyopathy. Father has h/o cardiomyopathy and older sister at age 4242 year old. Son was a long-distance runner and felt lightheadedness (but without palpitations or chest pain or shortness of breath) and found to have dilated cardiomyopathy (MRI showed EDV = 240 cc). Her son was diagnosed with cardiomyopathy and underwent genetic testing in 2020, a variant in MYH7 was identified [MYH7 c.5029C>T (p.[id number])] and GAA c.271G>A (p.[id number]). In 2021, interpretation was upgraded to likely pathogenic. He does not have any major Sx other than longstanding lightheadedness. Does complain of shortness of breath occasionally with exercise, but denies orthopnea, PND, dizziness, palpitations, syncope, chest pain, edema. She has previously had a negative stress echocardiogram in 2019 (results unavailable). She underwent an echo stress test 2.5 years ago and was reportedly normal. Denies orthopnea, PND, dizziness, palpitations, syncope, chest pain, edema. Does feel lifelong low exercise stamina. PAST MEDICAL HISTORY Diagnosis Date Depression Fracture of cervical vertebra, C2 (HCC) 12/2009 Hyperlipidemia Hypertension Hypothyroidism Irregular menses Obesity PAST SURGICAL HISTORY Procedure Laterality Date ANKLE SURGERY HX Left DELIVERY ONLY CHOLECYSTECTOMY COLONOSCOPY 08/2018 CYST/MOLE REMOVAL Wrist LEG SURGERY HX Right bunion surgery TONSILLECTOMY AND ADENOIDECTOMY HX SOCIAL HISTORY Social History Tobacco Use Smoking status: Never Smokeless tobacco: Never Substance Use Topics Alcohol use: Yes Comment: Socially Drug use: Never FAMILY HISTORY Problem Relation Age of Onset Hypertension Mother Heart Attack Mother PCI, CABGx3 (47), CABGx2 (66), Valve replaced (72) Cancer Mother Arrythmias Mother other (Basal Cell Cancer) Mother has 3 sisters with 3 different cancers other (atrial fibrill) Mother Hyperlipidemia Mother Obstructive Sleep Apnea Mother COPD Mother Hyperlipidemia Father Hypertension Father Diabetes Father Ischemic Heart Disease Father Heart Attack Father 63 s/p PCI Diabetes Sister Sudden Cardiac Sister 43 Hyperlipidemia Sister Hypertension Sister Heart Attack Sister Breast Cancer Maternal Aunt 60 other (Adrenal Cancer) Maternal Aunt 60 Heart Son Colon Cancer Other 60 ALLERGIES: ALLERGIES Allergen Reactions Adhesive Rash CURRENT MEDICATIONS: vitamin B complex (B-COMPLEX ORAL) Take 1 tablet by mouth once daily. amLODIPine (NORVASC) 5 mg tablet Take 5 mg by mouth once daily. cloNIDine HCl (CATAPRES) 0.1 mg tablet Take 0.1 mg by mouth once daily. losartan (COZAAR) 50 mg tablet Take 50 mg by mouth once daily. spironolactone (ALDACTONE) 25 mg tablet Take 25 mg by mouth once daily. buPROPion XL (WELLBUTRIN XL) 150 mg 24 hr tablet Take 150 mg by mouth once daily. VITAMIN D 1,000 unit (25 mcg) tab tablet Take 1,000 Units by mouth once daily. rosuvastatin (CRESTOR) 5 mg tablet Take 5 mg by mouth every other day. levothyroxine 88 mcg tablet Take 1 tablet by mouth once daily. metFORMIN ER 500 mg 24 hr tablet Take 4 tablets by mouth once daily. REVIEW OF SYSTEMS: CONSTITUTION: Negative for: Fever, Night sweats and Recent weight change HEENT: Negative for: Hearing loss RESPIRATORY: Positive for: Difficulty breathing Negative for: Cough GASTROINTESTINAL: Negative for: Melena, Nause (more content not included)... [facility] 12-07-2022 History of Present illness Narrative Images from the original note were not included. [facility] [place] [facility] SECTION OF HEART FAILURE and CARDIAC TRANSPLANT MEDICINE OUTPATIENT VISIT DATE December 07, 2022 OUTPATIENT VISIT TYPE Consultation PRIMARY CARE PHYSICIAN: Aaron Geiger (Victor Manuel) [address] [place] [address] CHIEF COMPLAINT: Evaluation for genetic cardiomyopathy NURSING INTAKE (Patient s concerns and/or recent hospitalizations/ER visits): Radha Alvarez is a 52 year old female from [place], [place] here for cardiac evaluation in relation to family history of cardiomyopathy and monoallelic mutation of MYH7 gene. HF Nursing Assessment: Interim Hospitalizations and/or ER visits: no Chest Pain: no Skipping or irregular heartbeats: occasionally Shortness of breath at rest: no Shortness of breath with activity: sometimes Cough: no Waking up in the middle of the night gasping for air: no Lightheadedness or dizziness: here and there Feeling like you are going to pass out: no Actually passing out: yes, years ago while walking on the treadmill Poor energy level: yes Unintentional weight gain: no Unintentional weight loss: no Swelling in your legs,feet, abdomen: no Filling up quickly when you eat: no HISTORY OF PRESENT ILLNESS: Mrs. Alvarez is a 52 year old lady here for established care after son was found to have MYH7 variant of dilated cardiomyopathy. Father has h/o cardiomyopathy and older sister at age 4242 year old. Son was a long-distance runner and felt lightheadedness (but without palpitations or chest pain or shortness of breath) and found to have dilated cardiomyopathy (MRI showed EDV = 240 cc). Her son was diagnosed with cardiomyopathy and underwent genetic testing in 2020, a variant in MYH7 was identified [MYH7 c.5029C>T (p.[id number])] and GAA c.271G>A (p.[id number]). In 2021, interpretation was upgraded to likely pathogenic. He does not have any major Sx other than longstanding lightheadedness. Does complain of shortness of breath occasionally with exercise, but denies orthopnea, PND, dizziness, palpitations, syncope, chest pain, edema. She has previously had a negative stress echocardiogram in 2019 (results unavailable). She underwent an echo stress test 2.5 years ago and was reportedly normal. Denies orthopnea, PND, dizziness, palpitations, syncope, chest pain, edema. Does feel lifelong low exercise stamina. PAST MEDICAL HISTORY Diagnosis Date Depression Fracture of cervical vertebra, C2 (HCC) 12/2009 Hyperlipidemia Hypertension Hypothyroidism Irregular menses Obesity PAST SURGICAL HISTORY Procedure Laterality Date ANKLE SURGERY HX Left DELIVERY ONLY CHOLECYSTECTOMY COLONOSCOPY 08/2018 CYST/MOLE REMOVAL Wrist LEG SURGERY HX Right bunion surgery TONSILLECTOMY AND ADENOIDECTOMY HX SOCIAL HISTORY Social History Tobacco Use Smoking status: Never Smokeless tobacco: Never Substance Use Topics Alcohol use: Yes Comment: Socially Drug use: Never FAMILY HISTORY Problem Relation Age of Onset Hypertension Mother Heart Attack Mother PCI, CABGx3 (47), CABGx2 (66), Valve replaced (72) Cancer Mother Arrythmias Mother other (Basal Cell Cancer) Mother has 3 sisters with 3 different cancers other (atrial fibrill) Mother Hyperlipidemia Mother Obstructive Sleep Apnea Mother COPD Mother Hyperlipidemia Father Hypertension Father Diabetes Father Ischemic Heart Disease Father Heart Attack Father 63 s/p PCI Diabetes Sister Sudden Cardiac Sister 43 Hyperlipidemia Sister Hypertension Sister Heart Attack Sister Breast Cancer Maternal Aunt 60 other (Adrenal Cancer) Maternal Aunt 60 Heart Son Colon Cancer Other 60 ALLERGIES: ALLERGIES Allergen Reactions Adhesive Rash CURRENT MEDICATIONS: vitamin B complex (B-COMPLEX ORAL) Take 1 tablet by mouth once daily. amLODIPine (NORVASC) 5 mg tablet Take 5 mg by mouth once daily. cloNIDine HCl (CATAPRES) 0.1 mg tablet Take 0.1 mg by mouth once daily. losartan (COZAAR) 50 mg tablet Take 50 mg by mouth once daily. spironolactone (ALDACTONE) 25 mg tablet Take 25 mg by mouth once daily. buPROPion XL (WELLBUTRIN XL) 150 mg 24 hr tablet Take 150 mg by mouth once daily. VITAMIN D 1,000 unit (25 mcg) tab tablet Take 1,000 Units by mouth once daily. rosuvastatin (CRESTOR) 5 mg tablet Take 5 mg by mouth every other day. levothyroxine 88 mcg tablet Take 1 tablet by mouth once daily. metFORMIN ER 500 mg 24 hr tablet Take 4 tablets by mouth once daily. REVIEW OF SYSTEMS: CONSTITUTION: Negative for: Fever, Night sweats and Recent weight change HEENT: Negative for: Hearing loss RESPIRATORY: Positive for: Difficulty breathing Negative for: Cough GASTROINTESTINAL: Negative for: Melena, Nausea, Diarrhea, Abdominal distention and Early satiety MUSCULOSKELETAL: Positive for: Arthralgias Negative for: Myalgias NEUROLOGICAL: Positive for: Dizziness Negative for: Headaches SKIN: Negative for: Rash EYES: Negative for: Visual disturbance CARDIOVASCULAR: Positive for: Arrhythmia Negative for: Chest pain, Leg swelling and Pre-syncope GENITOURINARY: Negative for: Difficulty urinating PATIENT ENTERED DATA: KCCQ-12 Scores 12/05/2022 Physical Limitation Score 91.67 (Class I Heart Failure ) Symptom Frequency Score 95.83 (Class I Heart Failure ) Quality of Life Score 87.5 (Class I Heart Failure) Social Limitation Score 100 (Class I Heart Failure) Overall Summary Score 93.75 (Class I Heart Failure ) PHQ-9 06/19/2020 05/27/2022 12/05/2022 Score 0 0 2 PROMIS Global Health - (T-Scores - the mean of general population = 50. Five points is a clinically meaningful difference.) 12/05/2022 Physical T-Score 50.8 Mental T-Score 50.8 PHYSICAL EXAMINATION: BP 118/81 Pulse 65 Ht 162.6 cm (5' 4) Wt 90.6 kg (199 lb 11.2 oz) LMP 05/03/2022 SpO2 96% BMI 34.28 kg/m General: Well appearing, in no acute distress. Skin: No clubbing, no cyanosis. Eyes: Extra ocular movements intact Oropharynx: Teeth in good repair. Neck: No jugular venous distention, no carotid bruits, carotids have a normal upstroke, no palpable thyromegaly. Lungs: Clear to auscultation bilaterally, no wheezing or rhonchi. Heart: Regular rhythm, PMI not displaced, S1, S2 normal, no S3, no S4, no heaves, no rub and no murmur. Abdomen: Soft, nontender, bowel sounds normal, no palpable organomegaly, no bruits. Extremities: No peripheral edema . Grade 2/4 distal pulses bilaterally. Neuro: Oriented to person, place and time, alert, cooperative, gait coordinated. CARDIOVASCULAR MEDICINE TESTING: Potassium (mmol/L) Date Value 12/06/2012 3.7 Sodium (mmol/L) Date Value 12/06/2012 139 Creatinine (mg/dL) Date Value 12/06/2012 0.67 BUN (mg/dL) Date Value 12/06/2012 12 Glucose (mg/dL) Date Value 12/06/2012 82 TSH (uU/mL) Date Value 12/06/2012 1.050 I have personally reviewed the Laboratory Testing and Echocardiogram. IMPRESSION: NYHA Functional Class: II Stage: B heart failure Target weight: current Heart Failure specific medications (list current, note updates or changes, note prior intolerance): BB: none ACEI/ARB/ARNI: losartan MRA: spironolactone SGLT2: none Diuretic: none Digoxin: none Vasodilators: none Anti-arrhythmics: none Ivabradine: none Other anti-HTN: clonidine, amlodipine PLAN AND RECOMMENDATIONS: Doing OK with current regimen. May drop clonidine/amlodipine and keep losartan/spironolactone for BP control. Check NT-proBNP, echo and EKG to evaluate for possible MYH7-associated cardiomyopathy as patient does have some shortness of breath on exertion. Return in one year or sooner if testing showed any abnormalities. I personally interviewed, confirmed and edited the above information as obtained by others I personally spent 60 minutes in total time involved in the management and care of this patient. We discussed natural history of disease, current treatment options, and future potential treatment options. We discussed diet, exercise, other non-medical management as above. Chava To MD [facility] Section Of Heart Failure and Cardiac Transplant Medicine [facility] [place] [facility] Desk [id number] [place] [address] documented in this encounter [facility] 10-23-2022 Miscellaneous Notes tried by phone again. sent [employer] message. I tried to reach Radha Alvarez by phone with results. Her mailbox was full. documented in this encounter [facility] 10-15-2022 Note [facility] Referral Lab 1 [facility] 10/15/2022 11:19 AM EST NON-INTERFACED REF LABS 09-18-2022 Note HNO ID: [id number] Author: MARGARITO Pereyra Service: ? Author Type: Genetic Counselor Type: Progress Notes Filed: 10/16/2022 1:29 PM Note Text: GENETIC COUNSELING CONSULTATION Radha Alvarez is a 52 year old female with a family history of cardiomyopathy and sudden referred for genetic counseling by Dr. Geiger. She is accompanied to her appointment by her and son, Chuy. This visit took place as a virtual visit over [employer]. Radha Alvarez presents to medical attention due to a family history of cardiomyopathy. 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 Radha Alvarez has previously had a negative stress echocardiogram, I do not have those records FAMILY HISTORY: The full family history will be available under scanned documents in the electronic medical record. Significant diagnoses are listed below: FAMILY HISTORY Problem Relation Age of Onset other (Basal Cell Cancer) Mother has 3 sisters with 3 different cancers other (atrial fibrill) Mother Ischemic Heart Disease Father Heart Attack Father 63 Sudden Cardiac Sister 43 Heart Son Breast Cancer Maternal Aunt 60 other (Adrenal Cancer) Maternal Aunt 60 Colon Cancer Other 60 IMPRESSION: Radha Alvarez is a 52 year old year old female with a family history of sudden and cardiomyopathy. Radha Alvarez's son was diagnosed with cardiomyopathy and underwent genetic testing and was found to have a mutation in MYH7 called c.5029C>T (p.[id number]). Radha Alvarez has a 50% chance of having this familial mutation. If she has this mutation it would indicate the need for ongoing cardiology evaluations. The alternative to genetic testing is ongoing clinical evaluations. Once a mutation is identified in a person with cardiomyopathy, other family members can be tested for the same mutation to determine if they need to be screened for cardiomyopathy. Family members who do not have the mutation do not have to have screening but family members with the mutation should be followed by a manager philosophy familiar with familial cardiomyopathy. However, identification of a mutation in family members without symptoms does not guarantee they will develop cardiomyopathy, only that they have an increased risk of developing it. Discussed alternative to genetic testing is ongoing cardiac evaluations. We discussed concerns about insurance discrimination based on genetic information. State and federal governments have enacted some protections against discrimination based on genetic information. The Genetic Information Nondiscrimination Act (RAVEN) was signed into law in 2008 and it prohibits health insurers and employers from discriminating against individuals based on genetic information. Additional information about this law may be found at www.ginahelp.org. Currently there are no protections against the use of genetic information for life insurance, disability insurance, or long-term care insurance. PLAN: - Testing for the familial MYH7 gene mutation through [facility]. Results are expected in approximately 3 weeks. - The patient will be contacted by telephone to discuss these results. The patient gave permission to share results with her family. A follow up genetic counseling visit will be scheduled if indicated. The patient was seen for a total of 35 minutes in [id number] counseling. This plan is being carried out under oversight of Dr. Sujata Jennings, Clinical Food Service Counter Clerk. This note will also be sent to the referring provider through the electronic medical records or US Mail. It is available to the patient through [email or web address]. Leigh Knapp MS, [facility] CC: Dr. Aaron Jennings [facility] 09-18-2022 History of Present illness Narrative GENETIC COUNSELING CONSULTATION Radha Alvarez is a 52 year old female with a family history of cardiomyopathy and sudden referred for genetic counseling by Dr. Geiegr. She is accompanied to her appointment by her and son, Chuy. This visit took place as a virtual visit over [employer]. Radha Alvarez presents to medical attention due to a family history of cardiomyopathy. Radha Alvarez's son was diagnosed with cardiomyopathy and underwent genetic testing in 2020, a variant in MYH7 was identified [MYH7 c.5029C>T (p.[id number])] in 2021 interprettation was upgraded to likely pathogenic and Radha Alvarez and her family have presented for genetic counseling and testing. Radha Alvarez has previously had a negative stress echocardiogram, I do not have those records FAMILY HISTORY: The full family history will be available under scanned documents in the electronic medical record. Significant diagnoses are listed below: FAMILY HISTORY Problem Relation Age of Onset other (Basal Cell Cancer) Mother has 3 sisters with 3 different cancers other (atrial fibrill) Mother Ischemic Heart Disease Father Heart Attack Father 63 Sudden Cardiac Sister 43 Heart Son Breast Cancer Maternal Aunt 60 other (Adrenal Cancer) Maternal Aunt 60 Colon Cancer Other 60 IMPRESSION: Radha Alvarez is a 52 year old year old female with a family history of sudden and cardiomyopathy. Radha Alvarez's son was diagnosed with cardiomyopathy and underwent genetic testing and was found to have a mutation in MYH7 called c.5029C>T (p.[id number]). Radha Alvarez has a 50% chance of having this familial mutation. If she has this mutation it would indicate the need for ongoing cardiology evaluations. The alternative to genetic testing is ongoing clinical evaluations. Once a mutation is identified in a person with cardiomyopathy, other family members can be tested for the same mutation to determine if they need to be screened for cardiomyopathy. Family members who do not have the mutation do not have to have screening but family members with the mutation should be followed by a manager philosophy familiar with familial cardiomyopathy. However, identification of a mutation in family members without symptoms does not guarantee they will develop cardiomyopathy, only that they have an increased risk of developing it. Discussed alternative to genetic testing is ongoing cardiac evaluations. We discussed concerns about insurance discrimination based on genetic information. State and federal governments have enacted some protections against discrimination based on genetic information. The Genetic Information Nondiscrimination Act (RAVEN) was signed into law in 2008 and it prohibits health insurers and employers from discriminating against individuals based on genetic information. Additional information about this law may be found at www.ginahelp.org. Currently there are no protections against the use of genetic information for life insurance, disability insurance, or long-term care insurance. PLAN: - Testing for the familial MYH7 gene mutation through [facility]. Results are expected in approximately 3 weeks. - The patient will be contacted by telephone to discuss these results. The patient gave permission to share results with her family. A follow up genetic counseling visit will be scheduled if indicated. The patient was seen for a total of 35 minutes in [id number] counseling. This plan is being carried out under oversight of Dr. Sujata Jennings, Clinical Food Service Counter Clerk. This note will also be sent to the referring provider through the electronic medical records or US Mail. It is available to the patient through [email or web address]. Leigh Knapp MS, [facility] CC: Dr. Aaron Jennings documented in this encounter [facility] 05-27-2022 Miscellaneous Notes Addended by: BETI MCCOY on: 05/27/2022 01:59 PM Modules accepted: Orders documented in this encounter [facility] 05-27-2022 History of Present illness Narrative CHANEL Alvarez is a 52 year old woman who presents for her annual exam: Last pap 05/20, Mammo 07/20, Bone Density never, Patient's last menstrual period was 05/03/2022.. Having breast tenderness Medications, Allergies, Surgeries, Family History updated and smoking status updated. Discussed health maintenance, including regular aerobic exercise, low fat diet, and periodic exams. HISTORIES FAMILY HISTORY Problem Relation Age of Onset other (Basal Cell Cancer) Mother has 3 sisters with 3 different cancers other (atrial fibrill) Mother Heart Son Breast Cancer Maternal Aunt 60 other (Adrenal Cancer) Maternal Aunt 60 Colon Cancer Other 60 PAST MEDICAL HISTORY Diagnosis Date Depression Fracture of cervical vertebra, C2 (HCC) 12/2009 Hyperlipidemia Hypertension Hypothyroidism Irregular menses Obesity PAST SURGICAL HISTORY Procedure Laterality Date ANKLE SURGERY HX CHOLECYSTECTOMY COLONOSCOPY 08/2018 CYST/MOLE REMOVAL Wrist LEG SURGERY HX Right TONSILLECTOMY AND ADENOIDECTOMY HX ACTIVE PROBLEM LIST Hyperlipidemia Ldl Goal < 100 Pcos (Polycystic Ovarian Syndrome) Hypothyroidism Hypertension ALLERGIES Allergen Reactions Adhesive Unknown Current Outpatient Medications Medication Sig vitamin B complex (B-COMPLEX ORAL) Take by mouth. amLODIPine (NORVASC) 5 mg tablet cloNIDine HCl (CATAPRES) 0.1 mg tablet losartan (COZAAR) 50 mg tablet spironolactone (ALDACTONE) 25 mg tablet buPROPion XL (WELLBUTRIN XL) 150 mg 24 hr tablet VITAMIN D 1,000 unit (25 mcg) tab tablet Take 1,000 Units by mouth once daily. rosuvastatin (CRESTOR) 5 mg tablet levothyroxine 88 mcg tablet Take 1 tablet by mouth once daily. metFORMIN ER 500 mg 24 hr tablet Take 4 tablets by mouth once daily. No current facility-administered medications for this visit. REVIEW OF SYSTEMS GENERAL: No weight loss, malaise or fevers HEENT: No changes in hearing or vision NECK: Negative for lumps, goiter, pain and significant neck swelling RESPIRATORY: Negative for cough, wheezing, dyspnea or shortness of breath CARDIOVASCULAR: Negative for chest pain or palpitations GI: Negative for abdominal discomfort, blood in stools or black stools, change in bowel habit, diarrhea, nausea, vomiting, constipation : No history of dysuria, frequency or incontinence WIDE AREA NETWORK ENGINEER: Negative for abnormal vaginal bleeding, abnormal vaginal discharge or Breast symptoms ENDOCRINE: Negative for cold or heat intolerance, polyuria, polydipsia and goiter NEURO: No history of headaches, syncope, paralysis, seizures or tremors OBJECTIVE BP 128/80 Ht 5' 4 (1.63m) Wt 195 lb (88.5kg) LMP 05/03/2022 BMI 33.46 kg/(m^2). HEENT: Within normal limits NECK: Supple, no thyromegaly BREASTS: No masses, no nipple discharge HEART: Regular rate and rhythm without murmur, rub, or gallop LUNGS: Clear bilaterally to auscultation ABDOMEN: No masses, non tender, no hernias, no hepatosplenomegaly PELVIC: EGBUS: No lesions, normal appearance VAGINA: No discharge, no blood, no lesions CERVIX: No lesions, non tender UTERUS: Anteverted, normal size, non tender ADNEXA: Non tender, no masses RECTOVAGINAL: Neg for heme or mass (FIT) EXTREMITIES: No edema, no calf tenderness NEUROLOGICAL: Grossly intact ASSESSMENT/PLAN: 1. Gynecologic exam normal - ICD9: V72.31, ICD10: Z01.419 (primary diagnosis) - Completed pelvic and breast exam - Encouraged monthly BSE - Follow up for annual exam in one year. - PAP REFLEX HPV MRNA WHEN ASCUS - TUYET SCREENING W KANA 2. Cervical cancer screening - ICD9: V76.2, ICD10: Z12.4 - PAP REFLEX HPV MRNA WHEN ASCUS 3. Breast cancer screening by mammogram - ICD9: V76.12, ICD10: Z12.31 - TUYET SCREENING W KANA 4. Encounter for Pap smear of cervix with HPV DNA cotesting - ICD9: V76.2, ICD10: Z12.4 HUMAN PAPILLOMA VIRUS, MRNA 5. Screening for osteoporosis Z13.820 kate[place]an MD Pam Andrea documented in this encounter [facility] Evaluation note No assessment inform ation available [facility] Work Phone: Evaluation note Diagnosis Gynecologic exam normal- Primary Cervical cancer screening Screening for malignant neoplasm of the cervix Breast cancer screening by mammogram Encounter for Pap smear of cervix with HPV DNA cotesting Screening for osteoporosis Special screening for osteoporosis Menopause Symptomatic menopausal or female climacteric states [facility] Family history of cardiomyopathy- Primary Family history of other cardiovascular diseases [facility] Diagnosis Family history of cardiomyopathy- Primary Family history of other cardiovascular diseases Monoallelic mutation of MYH7 gene [facility] Diagnosis Hypertension, unspecified type- Primary [facility] Diagnosis Hypertension, unspecified type- Primary [facility] Diagnosis Family history of cardiomyopathy Family history of other cardiovascular diseases Monoallelic mutation of MYH7 gene documented in this encounter [facility] note* Diagnosis Monoallelic mutation of MYH7 gene- Primary Shortness of breath documented in this encounter [facility] note* Diagnosis Essential hypertension- Primary Unspecified essential hypertension documented in this encounter [facility] note* Diagnosis Onset Date Resolution Status Irritant contact dermatitis due to plant acute [facility] Work Phone: Evaluation note* Diagnosis Gynecologic exam normal- Primary Screening for depression Cervical cancer screening Screening for malignant neoplasm of the cervix Breast cancer screening by mammogram Screening for osteoporosis Special screening for osteoporosis Menopause Symptomatic menopausal or female climacteric states documented in this encounter [facility] for referral (narrative)* Diagnostic Procedure Only (Routine) - Pending Review Specialty Diagnoses / Procedures Referred By Dany price Referred To Contact [facility] Diagnoses Gynecologic exam normal Breast cancer screening by mammogram Procedures TUYET SCREENING W KANA SCREENING DIGITAL BREAST TOMOSYNTHESIS BI SCREENING MAMMOGRAPHY BI 2-VIEW BREAST INC CAD Beti Miles MD [address] [address] [facility] [address] [place] [address] Referral ID Status Reason Start Date Expiration Date Visits Requested Visits Authorized [id number] Pending Review Auto-Generat ed Referral 05/27/2022 06/26/2023 1 1 [facility] for referral (narrative)* Outpatient Procedure (Routine) - Closed Specialty Diagnoses / Procedures Referred By Dany price [facility]erred [facility] Diagnoses Family history of cardiomyopathy Monoallelic mutation of MYH7 gene Procedures ECG COMPLETE ECG ROUTINE ECG W/LEAST 12 LDS W/I&R Chadwick To MD [address] [facility] [address] [place] [address] [facility] [place] [address] [facility] [place] [address] Referral ID Status Reason Start Date Expiration Date V isits Requested Visits Authorized [id number] Closed Auto-Generate d Referral 12/07/2022 12/07/2023 1 1 * Outpatient Procedure (Routine) - Pending Review Specialty Diagnoses / Procedures Referred By Dany price [facility] Diagnoses Family history of cardiomyopathy Monoallelic mutation of MYH7 gene Procedures ECHO ECHO TTHRC R-T 2D W/WOM-MODE COMPL SPEC&COLR D Chadwick To MD [address] [facility] [address] [place] [address] [facility] [place] [address] [place] [address] Referral ID Status Reason Start Date Expiration Date Visits Requested Visits Authorized [id number] Pending Review Auto-Generat ed Referral 12/14/2022 12/07/2023 1 1 [facility] for referral (narrative)* Diagnostic Procedure Only (Routine) - New Request Specialty Diagnoses / Procedures Referred By Dany price Referred To Contact [facility] Diagnoses Screening for osteoporosis Menopause Procedures DXA-AXIAL SKELETON DXA BONE DENSITY STUDY 1/> SITES AXIAL Beti Pickering MD [address] [address] [place] [address] Referral ID Status Reason Start Date Expiration Date Visits Requested Visits Authorized [id number] New Request Auto-Generat ed Referral 4 07/14/2025 1 1 * Diagnostic Procedure Only (Routine) - New Request Specialty Diagnoses / Procedures Referred By Dany price Referred To Contact [facility] Diagnoses Breast cancer screening by mammogram Procedures TUYET SCREENING W KANA SCREENING DIGITAL BREAST TOMOSYNTHESIS BI SCREENING MAMMOGRAPHY BI 2-VIEW BREAST INC CAD Beti Miles MD [email or web address] [address] [place] [address] [facility] [address] [place] [address] Referral ID Status Reason Start Date Expiration Date Visits Requested Visits Authorized [id number] New Request Auto-Generat ed Referral 4 07/14/2025 1 1 [facility] Advance Directives No Advanced Directives Records Found Advance Directive Response Recorded Date/ Time Advance Directives No June 9:36am Living Will No August 29, 2 018 2:48pm Power of Weight Checker No August 29, 2018 2:48pm Advance Directive Response Recorded Date/ Time Advance Directives No June 8:36am Living Will No August 29, 2 018 1:48pm Power of Weight Checker No August 29, 2018 1:48pm Chief Complaint and Reason for Visit Chief Complaint SCREENING Chief Complaint SCREENING OSTEOPOROSIS Chief Complaint HIVES SCREENING Reason for Visit Irritant contact estela matitis due to plant Reason for Referral Specialty Diagnoses / Procedures Referred By Dany price Referred To Contact Cardiology Diagnoses Family history of cardiomyopathy Monoallelic mutation of MYH7 gene Procedures CONSULT TO CARDIOLOGY OFFICE/OUTPATIENT [facility] MDM 60-74 MINUTES Sujata Jennings MD, PhD [address] [place] [phone] Referral ID Status Reason Start Date Expiration Date Visits Requested Visits Authorized [id number] Authorized PCP Requested Referral 10/23/2022 10/23/2023 1 1 Summary Purpose Family History No Family History Records FoundNo Family History Records Found Additional Source Comments Goals (unrecognized section and content) Goals may be documented in a n alternate sectionGoals may be documented in an alternate sectionGoals may be documented in an alternate sectionGoals may be documented in an alternate section Source Comments (unrecognize d section and content) In the event this informatio n is protected by the Federal Confidentiality of Alcohol and Drug Abuse Patient Records regulations: The Federal rules restrict any use of the information to criminally investigate or prosecute any alcohol or drug abuse patient.[facility] the event this information is protected by the Federal Confidentiality of Alcohol and Drug Abuse Patient Records regulations: The Federal rules restrict any use of the information to criminally investigate or prosecute any alcohol or drug abuse patient.[facility] the event this information is protected by the Federal Confidentiality of Alcohol and Drug Abuse Patient Records regulations: The Federal rules restrict any use of the information to criminally investigate or prosecute any alcohol or drug abuse patient.[facility] the event this information is protected by the Federal Confidentiality of Alcohol and Drug Abuse Patient Records regulations: The Federal rules restrict any use of the information to criminally investigate or prosecute any alcohol or drug abuse patient.[facility] the event this information is protected by the Federal Confidentiality of Alcohol and Drug Abuse Patient Records regulations: The Federal rules restrict any use of the information to criminally investigate or prosecute any alcohol or drug abuse patient.[facility] the event this information is protected by the Federal Confidentiality of Alcohol and Drug Abuse Patient Records regulations: The Federal rules restrict any use of the information to criminally investigate or prosecute any alcohol or drug abuse patient.[facility] the event this information is protected by the Federal Confidentiality of Alcohol and Drug Abuse Patient Records regulations: The Federal rules restrict any use of the information to criminally investigate or prosecute any alcohol or drug abuse patient.[facility] the event this information is protected by the Federal Confidentiality of Alcohol and Drug Abuse Patient Records regulations: The Federal rules restrict any use of the information to criminally investigate or prosecute any alcohol or drug abuse patient.[facility] the event this information is protected by the Federal Confidentiality of Alcohol and Drug Abuse Patient Records regulations: The Federal rules restrict any use of the information to criminally investigate or prosecute any alcohol or drug abuse patient.[facility] Center[facility] the event this information is protected by the Federal Confidentiality of Alcohol and Drug Abuse Patient Records regulations: The Federal rules restrict any use of the information to criminally investigate or prosecute any alcohol or drug abuse patient.[facility] Reason for Visit (unrecogniz ed section and content) 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 Specialty Clinic Reason Comments Results Specialty Diagnoses / Procedures Referred By Contlokesh t Referred To Contact Cardiology Diagnoses Family history of cardiomyopathy Monoallelic mutation of MYH7 gene Procedures CONSULT TO CARDIOLOGY OFFICE/OUTPATIENT [facility] 60-74 MINUTES Sujata Jennings MD, PhD [address] [place] [address] Referral ID Status Reason Start Date Expiration Date V isits Requested Visits Authorized [id number] Closed PCP Requested Referral 10/23/2022 10/23/2023 1 1 Reason Comments Results Reason Comments Wood Cabinetmaker Exam Care Teams (unrecognized sec tion and content) Duralumin Mechanic Relationship Specialty Start Date End Date Aaron Geiger MD [address] [place], [place] [address] PCP - General Family Medicine 06/19/19 Beti Miles MD [address] [place] [id number] Gynecology 06/07/18 Duralumin Mechanic Relationship Specialty Start Date End Date Aaron Geiger MD [address] [place], [place] [id number] PCP - General Family Medicine 06/19/19 Beti Miles MD [address] [address] Gynecology 06/07/18 Duralumin Mechanic Relationship Specialty Start Date End Date Aaron Geiger MD [address] [facility] [place] [address] PCP - General Family Medicine 06/19/19 Beti Miles MD [address] [place] [address] Gynecology 06/07/18 Duralumin Mechanic Relationship Specialty Start Date End Date Aaron Geiger MD [address] [facility] [place] [address] PCP - General Family Medicine 06/19/19 Beti Miles MD [address] [place] [address] Gynecology 06/07/18 Duralumin Mechanic Relationship Specialty Start Date End Date Aaron Geiger MD [address] [facility] [place] [address] PCP - General Family Medicine 06/19/19 Beti Miles MD [address] [address] Gynecology 06/07/18 Duralumin Mechanic Relationship Specialty Start Date End Date Aaron Geiger MD [address] [facility] [place] [address] PCP - General Family Medicine 06/19/19 Beti Miles MD [facility] [address] Gynecology 06/07/18 Duralumin Mechanic Relationship Specialty Start Date End Date Aaron Geiger MD [address] [facility] [address] PCP - General Family Medicine 06/19/19 Beti Miles MD [address] [place], [place] [id number] Gynecology 06/07/18 Duralumin Mechanic Relationship Specialty Start Date End Date Aaron Geiger MD [address] [place], [place] [id number] PCP - General Family Medicine 06/19/19 Beti Miles MD [address] [place] [address] Gynecology 06/07/18 Duralumin Mechanic Relationship Specialty Start Date End Date Aaron Geiger MD [address] [place] [address] PCP - General Family Medicine 06/19/19 Beti Miles MD [address] [place] [address] Gynecology 06/07/18 Team Status: Active Member Role Status Dates Dr. Aaron Geiger MD Family Provider Active Dr. Aaron Geiger MD Primary Care Provider Active Team Status: Inactive Member Role Status Dates Dr. Aaron Geiger MD Primary Care Provider, Referring P lang Active Ibrahima VIDES, PA Attending Provider Active Team Status: Inactive Member Role Status Dates Dr. Aaron Geiger MD Primary Care Provider Active Dr. Beti Miles MD Attending Provider, Referring Pro vider Active Duralumin Mechanic Relationship Specialty Start Date End Date Aaron Geiger MD [address] [place] [address] PCP - General Family Medicine 06/19/19 Beti Miles MD [address] [address] Gynecology 06/07/18 INFORMATION SOURCE (unrecogn ized section and content) DATE CREATED AUTHOR 08/21/2023 [facility] DATE CREATED AUTHOR AUTHOR'S LESLY BREAUX 09/11/2024 [facility] FOR RECORDS PERTAINING TO PATIENTS WHO ARE OR HAVE BEEN ENROLLED IN A CHEMICAL DEPENDENCY/SUBSTANCEABUSE PROGRAM, SOME INFORMATION MAY BE OMITTED. This clinical summary was aggregated from multiple sources. Caution should be exercised in using it in the provision of clinical care. This summary normalizes information from multiple sources, and as a consequence, information in this document may materially change the coding, format and clinical context of patient data. In addition, data may be omitted in some cases. CLINICAL DECISIONS SHOULD BE BASED ON THE PRIMARY CLINICAL RECORDS. [employer] provides no warranty or guarantee of the accuracy or completeness of information in this document.
[2025-03-17 07:54] LABS: Hematocrit 41.4 % (37-47); Hemoglobin 13.9 g/dL (12.0-15.0); Immature Granulocytes Count 0.020 X10^3/uL (0.0-0.0); Immature Reticulocyte Fraction 5.50 % (3.00-15.90); Mean Corp Hgb Conc 33.6 g/dL (32-36); Mean Corpuscular Volume 89.0 fL (81-99); Mean Platelet Vol. 10.6 fl (6.2-12.0); NRBC Flagged by Analyzer 0 % (0-5); Platelet Count 247 K/mm3 (150-450); RBC Distribution Width CV 12.5 % (11.6-14.6); RBC Distribution Width SD 40.4 fl (35.1-43.9); Red Blood Count 4.65 M/mm3 (4.2-5.4); Reticulocyte Count 1.39 % (0.5-1.5); White Blood Count 7.6 K/mm3 (4.4-11.0)
[2025-03-17 08:33] LABS: Ferritin 30 ng/mL (22-378); Iron Binding Capacity,Total 338 ug/dL (250-450)
[2025-03-17 08:39] LABS: AST(SGOT) 26 U/L (<=31); Alanine Aminotransfer ALT/SGPT 17 U/L (<=34); Albumin, Serum 4.6 g/dL (3.5-5.0); Alkaline Phosphatase 55 U/L (35-104); Anion Gap 11 (5-15); BUN 13 mg/dL (4-19); BUN/Creat Ratio 14.1 RATIO (10-20); Calcium,Total 9.7 mg/dL (7.6-11.0); Carbon Dioxide 24.2 mmol/L (21.0-32.0); Chloride 104 mmol/L (98-108); Globulin 2.7 g/dL (2.2-4.2); Glucose 103 mg/dL (70-99); Iron 66 ug/dL (50-170); Iron Binding Capacity,Unsat 272 ug/dL (228-428); Potassium 4.9 mmol/L (3.3-5.1)
== END | disposition home or self-care (01) ==
LOC: LAB 07:22
PROVIDERS: PCP Family Medicine; Referring Provider Family Medicine; Visit Provider Family Medicine
DX: K76.0 Fatty (change of) liver, not elsewhere classified (principal); E83.119 Hemochromatosis, unspecified; E88.810 Metabolic syndrome
CPT/HCPCS: 36415; 80053; 82728; 83036; 83540; 83550; 85025; 85045

== ENCOUNTER → 2025-06-20 | Outpatient (CLI) | payer BC, SELFPAY ==
[2025-06-20 13:20] LABS: AST(SGOT) 23 U/L (<=31); Alanine Aminotransfer ALT/SGPT 19 U/L (<=34); Albumin, Serum 4.6 g/dL (3.5-5.0); Alkaline Phosphatase 50 U/L (35-104); Anion Gap 12 (5-15); BUN 17 mg/dL (4-19); BUN/Creat Ratio 17.3 RATIO (10-20); Calcium,Total 9.8 mg/dL (7.6-11.0); Carbon Dioxide 25.2 mmol/L (21.0-32.0); Chloride 101 mmol/L (98-108); Cholesterol 174 mg/dL (<=200); Globulin 2.9 g/dL (2.2-4.2); Glucose 87 mg/dL (70-99); Low Density Lipoprotein Calc. 104 mg/dL; Potassium 4.0 mmol/L (3.3-5.1); Triglycerides 83 mg/dL; Very Low Density Lipoprotein 17 mg/dL (5-40); cholesterol:hdl ratio screen 3.19
== END | disposition home or self-care (01) ==
LOC: MFPLAB 09:39
PROVIDERS: PCP Family Medicine; Visit Provider Family Medicine
DX: Z00.8 Encounter for other general examination (principal)
CPT/HCPCS: 36415; 80053; 80061; 83036; 84443